=== PATIENT | male | born 1955 | race Caucasian/White ===

== ENCOUNTER → 2018-11-05 09:51 | Outpatient (CLI) | payer BC, SELFPAY ==
--- NOTE | 2018-11-05 09:56 | VDLE_ITS ---
Reason For Study: ACUTE DVT RIGHT LEFT CFV is compressible, spontaneous, phasic, GSV is normal. competent and demonstrates normal CFV is compressible, spontaneous, phasic, augmentation. competent, and demonstrates normal Procedure augmentation. Exam performed in department. FV is compressible, spontaneous, phasic, A preliminary report was called and/or faxed competent and demonstrates normal to DR [place]. augmentation. POP V is compressible, spontaneous, phasic, competent and demonstrates normal augmentation. T/P Trunk is compressible. PTV is compressible. LT PerV is compressible. Interpretation Summary Deep veins of the left lower extremity are patent and compressible segmentally. There is no evidence of left lower extremity deep vein thrombosis. Valvular competence appears intact within the proximal deep venous system on the left . The left greater saphenous vein appears patent and compressible segmentally. Ordering Physician: Twila Canada Referring Physician: Twila Canada Performed By: Jennifer Hanson, RAFI, RVT
--- OUTSIDE RECORDS SUMMARY | 2019-02-06 22:15 | XMS RPT_ITS | Continuity of Care Document ---
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) Status: Active BMI 27.0-27.9,adult (Z68.27, V85.23) Status: Active Encounter for screening for malignant neoplasm of colon (Renamed from Special screening for malignant neoplasms, colon) (Z12.11, V76.51) Comments: pt refused scope Status: Active Encounter for screening for malignant neoplasm of prostate (Renamed from Screening for prostate cancer) (Z12.5, V76.44) Status: Active Erectile Dysfunction (N52.9, 607.84) Status: Active High triglycerides (E78.1, 272.1) Status: Active History of rotator cuff surgery (Z98.890, V45.89) Status: Active HTN (hypertension), benign (I10, 401.1) Comments: pt lost 40# and currently bp good and no meds Status: Active Need for prophylactic vaccination and inoculation against influenza (Renamed from Need for immunization against influenza) (Z23, V04.81) Status: Active Need for prophylactic vaccination and inoculation against influenza (Renamed from Need for immunization against influenza) (Z23, V04.81) Status: Active Nonsmoker (Z78.9, V49.89) Status: Active Osteoarthritis (M19.90, 715.90) Comments: talked about alternating forms of exercise with non wt bearing and running to tolerat better andstay active Status: Active Pre-operative examination (Z01.818, V72.84) Comments: ekg done 3 weeks ago Status: Active Shoulder pain (M25.519, 719.41) Status: Active Skin Cancer Status: Active Torn rotator cuff (M75.100, 840.4) Status: Active Unspecified Diagnosis Status: Active Medications Name Dates Details AmLODIPine Besylate 2.5 MG Oral Tablet Active 1 qd (2.5 MG) BusPIRone HCl 10 MG Oral Tablet Active 1 bid (10 MG) CloNIDine HCl 0.1 MG Oral Tablet Active 1 qd (0.1 MG) Famotidine 20 MG Oral Tablet Active 1 bid (20 MG) Melatonin 5 MG Oral Tablet Active 1 qd (5 MG) Memantine HCl 5 MG Oral Tablet Active 1 bid (5 MG) Multivitamin Adult Oral Tablet Active 1 qd Propranolol HCl 10 MG Oral Tablet Active 1 qd (10 MG) Tylenol 325 MG Oral Tablet Active 1 q6hrs (325 MG) Cialis 10 MG Oral Tablet 1 (one) Tablet one hr prior to sexual activity as needed for 0 days Quantity: 12 {Tablet} Refills: 0 Ordered:31-Oct-2018 Johana Underwood LPN Start : 16-Oct-2017 End : 31-Oct-2018 Inactive Comments:Medication taken as needed. CRESTOR, 20MG (Oral Tablet) 1 (one) Tablet qd for 0 days Quantity: 30 {Tablet} Refills: 3 Ordered:30-Sep-2015 Johana Underwood LPN Start : 10-Jun-2015 End : 30-Sep-2015 Inactive Lisinopril-Hydrochlorothiazide 10-12.5 MG Oral Tablet 1 (one) Tablet Tablet qd for 0 days Quantity: 30 {Tablet} Refills: 3 Ordered:16-Oct-2017 Frances Oliver Start : 30-Sep-2015 End : 16-Oct-2017 Inactive Medrol 4 MG Oral Tablet Therapy Pack 1 (one) Tablet TAd for 0 days Quantity: 1 {Package} Refills: 0 Ordered:16-Oct-2017 Frances Oliver Start : 07-Oct-2015 End : 16-Oct-2017 Inactive Comments:with No Known Historical Medications Norvasc 5 MG Oral Tablet 1 (one) Tablet Tablet qd for 0 days Quantity: 30 {Tablet} Refills: 6 Ordered:16-Oct-2017 Frances Oliver Start : 30-Sep-2015 End : 16-Oct-2017 Inactive PREDNISONE, 20MG (Oral Tablet) 1 (one) Tablet bid for 2days then qd for 4days then 1/2 tab qd for 4 days wiht food for 10 days Quantity: 6 {QS} Refills: 0 Ordered:07-Oct-2015 Hawa Isidro CNP Start : 07-Oct-2015 End : 17-Oct-2015 Inactive Allergies and Adverse Reactions Name Dates Details No Known Allergies (Allergy) Onset: 17-Feb-2014 Status: Active No Known Drug Allergies (Allergy) Onset: 16-Oct-2017 Status: Active Past Medical History Name Dates Details Indigestion (K30, 536.8) Status: Inactive as of 16-Oct-2017 Procedures Procedure Dates Details Annual Eye Exam Completed Comments: 2012 Cholecystectomy Completed Comments: 03/03 Colonoscopy, Screening Completed Comments: never Flu Vaccine Completed Comments: 2011 PSA Completed Comments: 2011 torn roater cuff and bicep Completed Comments: Left -- 2.10.15Yaquelin Bolanos Case Date Value Details 18-Feb-2014 Gallbladder Result: Comments: See Note; NOTES: [facility] Imaging Services [address] [place] [address] Ultrasound Report MR#: [id number] Acct: [id number] Name: JANET CARLSON Rep #: [id number] : 1955 M 58 From: Yariel Spencer MD PCP: Twila Mckeon DO Status: REG CLI Study: Gallbladder Date of Exam: 02/18/14 Exam# [id number] Ordering Dr: Twila Mckeon DO STUDY: ABDO ANGELITO ULTRASOUND - RIGHT UPPER QUADRANT REASON FOR VISIT: Male, 58 years old. Abdominal pain. TECHNIQUE: Ultrasound evaluation of the right upper quadrant was performed with real-time and static gr ay-scale imaging. TECHNICAL QUALITY: Adequate. COMPARISON: None. FINDINGS: Liver: The liver is mildly enlarged and measures 18.4 cm. There is increased echo genicity consistent with fatty infiltration. There is a 2 cm x 1 cm x 0.9 cm focal area of fatty sparing adjacent to the gallbladder. The bile ducts are within normal limits. There is hepatic color fl ow. The direction of portal flow is hepatopetal. There is no demonstrated mass lesion. Gallbladder: Normal distended gallbladder. The gallbladder wall measures 2.2 mm. There is a negative sonograph ic Vasquez's sign. There is no pericholecystic fluid. There are no gallstones. Common Bile Duct (C.B.D.): The common bile duct measures 4.4 mm. Pancreas: There is nonvisualization of the pancreas. Right Kidney: Normal size of the right kidney. The right kidney measures 11.0 cm. Normal renal cortex. The right cortex measures 1.1 cm. There is no demonstrated renal mass or cyst. There is no right hydronephrosis. IMPRESSION: Mild hepatomegaly and fatty infiltration of the liver with focal fatty sparing in the region of the gallbladder. Electronically Si gned: Yariel Spencer M.D. at 9:21 EDT , Service support [phone], CC: Twila Mckeon DO Electrical Assistant: Signed Family History Unknown Family Member Name Dates Details Heart Disease Comments: Mother. Status: Active Hypertension Comments: Mother. Brother. Status: Active Social History Name Dates Details Caffeine Use Comments: qd Status: Active Exercise History: Exercises regularly. Comments: 5x q week Status: Active Living Situation: Lives alone. Status: Active No Drug Use Status: Active Non Drinker/No Alcohol Use Status: Active Pets/Animals: Dog. Status: Active Tobacco use: Former smoker. Status: Active Smoking Status Name Dates Details Former smoker Vital Signs Date Test Result Details [id number] Pulse 69 /min Comments: Pattern: Regular Respiration Rate 18 /min Comments: Pattern: Unlabored O2 SAT 97 % Comments: Room air BP Systolic 128 mm[Hg] Comments: Patient Position: Sitting; Cuff Location: Left Arm; Cuff Size: Large BP Diastolic 70 mm[Hg] Comments: Patient Position: Sitting; Cuff Location: Left Arm; Cuff Size: Large Weight 184 lb Height 72 in Body Mass Index Calculated 24.95 kg/m2 Body Surface Area Calculated 2.06 m2 :54 Pulse 70 /min Comments: Pattern: Regular Respiration Rate 16 /min Comments: Pattern: Unlabored O2 SAT 98 % Comments: Room air BP Systolic 122 mm[Hg] Comments: Patient Position: Sitting; Cuff Location: Left Arm; Cuff Size: Standard BP Diastolic 80 mm[Hg] Comments: Patient Position: Sitting; Cuff Location: Left Arm; Cuff Size: Standard Weight 205.5 lb Height 72 in Body Mass Index Calculated 27.87 kg/m2 Body Surface Area Calculated 2.16 m2 :48 Pulse 80 /min Comments: Pattern: Regular Respiration Rate 18 /min Comments: Pattern: Unlabored O2 SAT 98 % Comments: Room air BP Systolic 124 mm[Hg] Comments: Patient Position: Sitting; Cuff Location: Left Arm; Cuff Size: Large BP Diastolic 82 mm[Hg] Comments: Patient Position: Sitting; Cuff Location: Left Arm; Cuff Size: Large Weight 233.5 lb Height 72 in Body Mass Index Calculated 31.67 kg/m2 Body Surface Area Calculated 2.28 m2 :11 Pulse 62 /min Comments: Pattern: Regular Respiration Rate 18 /min Comments: Pattern: Unlabored O2 SAT 98 % Comments: Room air BP Systolic 122 mm[Hg] Comments: Patient Position: Sitting; Cuff Location: Left Arm; Cuff Size: Large BP Diastolic 80 mm[Hg] Comments: Patient Position: Sitting; Cuff Location: Left Arm; Cuff Size: Large Weight 218.375 lb Height 72 in Body Mass Index Calculated 29.62 kg/m2 Body Surface Area Calculated 2.21 m2 :51 Temperature 97.9 f Comments: Method: Temporal Pulse 76 /min Comments: Pattern: Regular Respiration Rate 16 /min Comments: Pattern: Unlabored O2 SAT 96 % Comments: Room air BP Systolic 142 mm[Hg] Comments: Patient Position: Sitting; Cuff Location: Left Arm; Cuff Size: Standard BP Diastolic 88 mm[Hg] Comments: Patient Position: Sitting; Cuff Location: Left Arm; Cuff Size: Standard Weight 225.25 lb Height 72 in Body Mass Index Calculated 30.55 kg/m2 Body Surface Area Calculated 2.24 m2 :33 Pulse 88 /min Comments: Pattern: Regular Respiration Rate 18 /min Comments: Pattern: Unlabored O2 SAT 93 % Comments: Room air BP Systolic 146 mm[Hg] Comments: Patient Position: Sitting; Cuff Location: Left Arm; Cuff Size: Large BP Diastolic 98 mm[Hg] Comments: Patient Position: Sitting; Cuff Location: Left Arm; Cuff Size: Large Weight 238.25 lb Height 72 in Body Mass Index Calculated 32.31 kg/m2 Body Surface Area Calculated 2.3 m2 :14 Temperature 97.7 f Comments: Method: Oral Pulse 81 /min Comments: Pattern: Regular Respiration Rate 18 /min Comments: Pattern: Unlabored O2 SAT 96 % Comments: Room air BP Systolic 116 mm[Hg] Comments: Patient Position: Sitting; Cuff Location: Left Arm; Cuff Size: Standard BP Diastolic 78 mm[Hg] Comments: Patient Position: Sitting; Cuff Location: Left Arm; Cuff Size: Standard Weight 219.3125 lb Height 72 in Body Mass Index Calculated 29.74 kg/m2 Body Surface Area Calculated 2.22 m2 :57 Temperature 97.6 f Comments: Method: Oral Pulse 77 /min Comments: Pattern: Regular Respiration Rate 20 /min Comments: Pattern: Unlabored O2 SAT 96 % Comments: Room air BP Systolic 152 mm[Hg] Comments: Patient Position: Sitting; Cuff Location: Left Arm; Cuff Size: Large BP Diastolic 108 mm[Hg] Comments: Patient Position: Sitting; Cuff Location: Left Arm; Cuff Size: Large Weight 226.3125 lb Height 72 in Body Mass Index Calculated 30.69 kg/m2 Body Surface Area Calculated 2.25 m2 Results Date Description Value Details :46 Microscopic Examination Comments: PATIENT WAS FASTINGPERFORMED BY: CB [facility] [id number] [facility] [id number] BY: BN [facility] [address] [id number] Bacteria None seen (Normal) Mucus Threads Present (Normal) Epithelial Cells (non renal) None seen {/hpf} (Normal) Range: 0 - 10 RBC 0-2 {/hpf} (Normal) Range: 0 - 2 WBC 0-5 {/hpf} (Normal) Range: 0 - 5 :46 TESTOSTERONE FREE (13515) Comments: PATIENT WAS FASTINGPERFORMED BY: [place] [id number] [facility] [id number] BY: [address] [id number] Free Testosterone(Direct) 10.5 pg/mL (Normal) Range: 6.6-18.1 :46 PSA (PROSTATE SPECIFIC Comments: PATIENT WAS FASTINGPERFORMED BY: [place] [address] [id number] BY: [place] [id number] ANTIGEN) (V76.44) Prostate Specific Ag, 1.6 ng/mL (Normal) Range: 0.0-4.0 Serum Comments: KnovelIA methodology. .According to the [place] [employer], Serum PSA shoulddecrease and remain at undetectable levels after radicalprostatectomy. The AUA defines biochemical recurrence as an initialPSA value 0.2 ng/mL or greater followed by a subsequent confirmatoryPSA value 0.2 ng/mL or greater.Values obtained with d ifferent assay methods or kits cannot be usedinterchangeably. Results cannot be interpreted as absolute evidenceof the presence or absence of malignant disease. :46 TSH (70156) Comments: PATIENT WAS FASTINGPERFORMED BY: [place] [id number] [facility] [id number] BY: [address] [id number] TSH 2.520 {uIU/mL} (Normal) Range: 0.450-4.500 59-Jra-158906:46 URINALYSIS, W/ MICRO Comments: PATIENT WAS FASTINGPERFORMED BY: [place] [id number] BY: [address] [id number] (43040) Microscopic Examination See below: (Normal) Comments: Microscopic was indicated and was performed. Microscopic Examination MICRON (Normal) Comments: Microscopic follows if indicated. Nitrite, Urine Negative (Normal) Urobilinogen,Semi-Qn 0.2 mg/dL (Normal) Range: 0.2-1.0 Bilirubin Negative (Normal) Occult Blood Negative (Normal) Ketones Negative (Normal) Glucose Negative (Normal) Protein Negative (Normal) WBC Esterase Negative (Normal) Appearance Clear (Normal) Urine-Color Yellow (Normal) pH 5.5 (Normal) Range: 5.0-7.5 Specific [place] 1.019 (Normal) Range: 1.005-1.030 :46 MICROALBUMIN: CREATININE Comments: PATIENT WAS FASTINGPERFORMED BY: IROCKE[address] [id number] BY: [address] [id number] RATIO (74402) AND (42987) Microalb/Creat Ratio 7.2 {mg/g_creat} (Normal) Range: 0.0-30.0 Microalbumin, Urine 8.8 ug/mL (Normal) Creatinine, Urine 122.7 mg/dL (Normal) :46 METABOLIC PANEL, Comments: PATIENT WAS FASTINGPERFORMED BY: IROCKE[address] [id number] BY: [place] [id number] COMPREHENSIVE (72267) ALT (SGPT) 22 [iU]/L (Normal) Range: 0-44 AST (SGOT) 16 [iU]/L (Normal) Range: 0-40 Alkaline Phosphatase, S 73 [iU]/L (Normal) Range: 39-117 Bilirubin, Total 0.3 mg/dL (Normal) Range: 0.0-1.2 A/G Ratio 1.6 (Normal) Range: 1.2-2.2 Globulin, Total 2.6 g/dL (Normal) Range: 1.5-4.5 Albumin, Serum 4.1 g/dL (Normal) Range: 3.6-4.8 Protein, Total, Serum 6.7 g/dL (Normal) Range: 6.0-8.5 Calcium, Serum 9.3 mg/dL (Normal) Range: 8.6-10.2 Carbon Dioxide, Total 23 mmol/L (Normal) Range: 18-29 Chloride, Serum 105 mmol/L (Normal) Range: 96-106 Potassium, Serum 4.7 mmol/L (Normal) Range: 3.5-5.2 Sodium, Serum 144 mmol/L (Normal) Range: 134-144 BUN/Creatinine Ratio 14 (Normal) Range: 10-24 eGFR If Africn Am 92 mL/min/1.73 (Normal) eGFR If NonAfricn Am 80 mL/min/1.73 (Normal) Creatinine, Serum 1.01 mg/dL (Normal) Range: 0.76-1.27 BUN 14 mg/dL (Normal) Range: 8-27 Glucose, Serum 80 mg/dL (Normal) Range: 65-99 80-Qxx-531426:46 LIPID PANEL (52880) Comments: PATIENT WAS FASTINGPERFORMED BY: [email or web address] [facility] [id number] BY: Inveni [address] [id number] LDL/HDL Ratio 3.0 {ratio_units} (Normal) Range: 0.0-3.6 Comments: LDL/HDL Ratio Men Women 1/2 Avg.Risk 1.0 1.5 Av g.Risk 3.6 3.2 2X Avg.Risk 6.2 5.0 3X Avg.Risk 8.0 6.1 LDL Cholesterol Calc 106 mg/dL (Abnormal) Range: 0-99 VLDL Cholesterol Tony 36 mg/dL (Normal) Range: 5-40 HDL Cholesterol 35 mg/dL (Abnormal) Triglycerides 180 mg/dL (Abnormal) Range: 0-149 Cholesterol, Total 177 mg/dL (Normal) Range: 100-199 24-Nzw-772754:46 CBC W/AUTO DIFF WBC Comments: PATIENT WAS FASTINGPERFORMED BY: [email or web address] [facility] [id number] BY: [place] [id number] (49891) Immature Grans (Abs) 0.0 {x10E3/uL} (Normal) Range: 0.0-0.1 Immature Granulocytes 0 % (Normal) Baso (Absolute) 0.1 {x10E3/uL} (Normal) Range: 0.0-0.2 Eos (Absolute) 0.4 {x10E3/uL} (Normal) Range: 0.0-0.4 Monocytes(Absolute) 0.5 {x10E3/uL} (Normal) Range: 0.1-0.9 Lymphs (Absolute) 2.3 {x10E3/uL} (Normal) Range: 0.7-3.1 Neutrophils (Absolute) 1.9 {x10E3/uL} (Normal) Range: 1.4-7.0 Basos 2 % (Normal) Eos 7 % (Normal) Monocytes 9 % (Normal) Lymphs 45 % (Normal) Neutrophils 37 % (Normal) Platelets 303 {x10E3/uL} (Normal) Range: 150-379 RDW 13.4 % (Normal) Range: 12.3-15.4 MCHC 33.8 g/dL (Normal) Range: 31.5-35.7 MCH 32.8 pg (Normal) Range: 26.6-33.0 MCV 97 fL (Normal) Range: 79-97 Hematocrit 45.0 % (Normal) Range: 37.5-51.0 Hemoglobin 15.2 g/dL (Normal) Range: 12.6-17.7 Comments: Effective October 23, 2017 the reference interval for Hemoglobin MALES only will be changing to: Males 13-15 years: 12.6 - 17.7 Males >15 years: 13.0 - 17.7 RBC 4.64 {x10E6/uL} (Normal) Range: 4.14-5.80 WBC 5.1 {x10E3/uL} (Normal) Range: 3.4-10.8 :01 TESTOSTERONE TOTAL (12291) Comments: PATIENT WAS FASTINGPERFORMED BY: MARIA EUGENIA Mayomi70 [facility] [id number] Comment: TESTM (Normal) Comments: Adult male reference interval is based on a population of lean malesup to 40 years old. Testosterone, Serum 398 ng/dL (Normal) Range: 348-1197 :01 CBC WITH MANUAL DIFF Comments: PATIENT WAS FASTINGPERFORMED BY: MARIA EUGENIA Karaz [facility] [id number] Information: [id number] (56542) Immature Grans (Abs) 0.0 {x10E3/uL} (Normal) Range: 0.0-0.1 Immature Granulocytes 0 % (Normal) Baso (Absolute) 0.1 {x10E3/uL} (Normal) Range: 0.0-0.2 Eos (Absolute) 0.1 {x10E3/uL} (Normal) Range: 0.0-0.4 Monocytes(Absolute) 0.4 {x10E3/uL} (Normal) Range: 0.1-0.9 Lymphs (Absolute) 2.3 {x10E3/uL} (Normal) Range: 0.7-3.1 Neutrophils (Absolute) 1.2 {x10E3/uL} (Abnormal) Range: 1.4-7.0 Basos 2 % (Normal) Eos 3 % (Normal) Monocytes 10 % (Normal) Lymphs 56 % (Normal) Neutrophils 29 % (Normal) Platelets 208 {x10E3/uL} (Normal) Range: 150-379 RDW 13.1 % (Normal) Range: 12.3-15.4 MCHC 33.8 g/dL (Normal) Range: 31.5-35.7 MCH 31.7 pg (Normal) Range: 26.6-33.0 MCV 94 fL (Normal) Range: 79-97 Hematocrit 45.6 % (Normal) Range: 37.5-51.0 Hemoglobin 15.4 g/dL (Normal) Range: 12.6-17.7 RBC 4.86 {x10E6/uL} (Normal) Range: 4.14-5.80 WBC 4.2 {x10E3/uL} (Normal) Range: 3.4-10.8 :01 TSH (83213) Comments: PATIENT WAS FASTINGPERFORMED BY: MARIA EUGENIA [facility] [id number] TSH 2.030 {uIU/mL} (Normal) Range: 0.450-4.500 :01 Lipid Panel (73557) Comments: PATIENT WAS FASTINGPERFORMED BY: MARIA EUGENIA [facility] [id number] LDL/HDL Ratio 3.1 {ratio_units} (Normal) Range: 0.0-3.6 Comments: LDL/HDL Ratio Men Women 1/2 Avg.Risk 1.0 1.5 Av g.Risk 3.6 3.2 2X Avg.Risk 6.2 5.0 3X Avg.Risk 8.0 6.1 LDL Cholesterol Calc 98 mg/dL (Normal) Range: 0-99 VLDL Cholesterol Tony 51 mg/dL (Abnormal) Range: 5-40 HDL Cholesterol 32 mg/dL (Abnormal) Comments: According to ATP-III Guidelines, HDL-C >59 mg/dL is considered anegative risk factor for CHD. Triglycerides 257 mg/dL (Abnormal) Range: 0-149 Cholesterol, Total 181 mg/dL (Normal) Range: 100-199 02-Zxs-34706:01 Metabolic Panel, Comprehensive Comments: PATIENT WAS FASTINGPERFORMED BY: [facility][id number] [facility] [id number] ([id number]) ALT (SGPT) 28 [iU]/L (Normal) Range: 0-44 AST (SGOT) 25 [iU]/L (Normal) Range: 0-40 Alkaline Phosphatase, S 57 [iU]/L (Normal) Range: 39-117 Bilirubin, Total 0.5 mg/dL (Normal) Range: 0.0-1.2 A/G Ratio 2.1 (Normal) Range: 1.1-2.5 Globulin, Total 2.4 g/dL (Normal) Range: 1.5-4.5 Albumin, Serum 5.0 g/dL (Normal) Range: 3.5-5.5 Protein, Total, Serum 7.4 g/dL (Normal) Range: 6.0-8.5 Calcium, Serum 9.8 mg/dL (Normal) Range: 8.7-10.2 Carbon Dioxide, Total 22 mmol/L (Normal) Range: 18-29 Chloride, Serum 98 mmol/L (Normal) Range: 97-108 Potassium, Serum 4.4 mmol/L (Normal) Range: 3.5-5.2 Sodium, Serum 141 mmol/L (Normal) Range: 134-144 BUN/Creatinine Ratio 14 (Normal) Range: 9-20 eGFR If Africn Am 68 mL/min/1.73 (Normal) eGFR If NonAfricn Am 59 mL/min/1.73 (Abnormal) Creatinine, Serum 1.32 mg/dL (Abnormal) Range: 0.76-1.27 BUN 19 mg/dL (Normal) Range: 6-24 Glucose, Serum 84 mg/dL (Normal) Range: 65-99 :55 Sed Rate Erythrocyte (68785) Comments: PATIENT NOT FASTINGPERFORMED BY: Inveni Egsknr0443 [facility] [id number] Sedimentation Rate-Westergren 6 mm/h (Normal) Range: 0-30 16-Uqs-264237:55 METABOLIC PANEL, COMPREHENSIVE Comments: PATIENT NOT FASTINGPERFORMED BY: [employer]6370 [facility] [id number] ([id number]) ALT (SGPT) 26 [iU]/L (Normal) Range: 0-44 AST (SGOT) 18 [iU]/L (Normal) Range: 0-40 Alkaline Phosphatase, S 62 [iU]/L (Normal) Range: 39-117 Bilirubin, Total 0.2 mg/dL (Normal) Range: 0.0-1.2 A/G Ratio 1.8 (Normal) Range: 1.1-2.5 Globulin, Total 2.6 g/dL (Normal) Range: 1.5-4.5 Albumin, Serum 4.7 g/dL (Normal) Range: 3.5-5.5 Protein, Total, Serum 7.3 g/dL (Normal) Range: 6.0-8.5 Calcium, Serum 9.6 mg/dL (Normal) Range: 8.7-10.2 Carbon Dioxide, Total 21 mmol/L (Normal) Range: 19-28 Chloride, Serum 104 mmol/L (Normal) Range: 97-108 Potassium, Serum 4.1 mmol/L (Normal) Range: 3.5-5.2 Sodium, Serum 142 mmol/L (Normal) Range: 134-144 BUN/Creatinine Ratio 17 (Normal) Range: 9-20 eGFR If Africn Am 78 mL/min/1.73 (Normal) eGFR If NonAfricn Am 67 mL/min/1.73 (Normal) Creatinine, Serum 1.19 mg/dL (Normal) Range: 0.76-1.27 BUN 20 mg/dL (Normal) Range: 6-24 Glucose, Serum 89 mg/dL (Normal) Range: 65-99 73-Lly-133512:55 CBC WITH MANUAL DIFF Comments: PATIENT NOT FASTINGPERFORMED BY: MARIA EUGENIA [facility] Haeiaw7944 [facility] [id number] Information: [id number] (18763) Immature Grans (Abs) 0.0 {x10E3/uL} (Normal) Range: 0.0-0.1 Immature Granulocytes 0 % (Normal) Range: 0-2 Baso (Absolute) 0.1 {x10E3/uL} (Normal) Range: 0.0-0.2 Eos (Absolute) 0.1 {x10E3/uL} (Normal) Range: 0.0-0.4 Monocytes(Absolute) 0.4 {x10E3/uL} (Normal) Range: 0.1-0.9 Lymphs (Absolute) 2.2 {x10E3/uL} (Normal) Range: 0.7-3.1 Neutrophils (Absolute) 1.7 {x10E3/uL} (Normal) Range: 1.4-7.0 Basos 1 % (Normal) Range: 0-3 Eos 2 % (Normal) Range: 0-5 Monocytes 8 % (Normal) Range: 4-12 Lymphs 51 % (Abnormal) Range: 14-46 Neutrophils 38 % (Abnormal) Range: 40-74 Platelets 257 {x10E3/uL} (Normal) Range: 155-379 RDW 13.2 % (Normal) Range: 12.3-15.4 MCHC 33.3 g/dL (Normal) Range: 31.5-35.7 MCH 31.6 pg (Normal) Range: 26.6-33.0 MCV 95 fL (Normal) Range: 79-97 Hematocrit 42.6 % (Normal) Range: 37.5-51.0 Hemoglobin 14.2 g/dL (Normal) Range: 12.6-17.7 RBC 4.50 {x10E6/uL} (Normal) Range: 4.14-5.80 WBC 4.5 {x10E3/uL} (Normal) Range: 3.4-10.8 Plan of Care Name Dates Details Instructions Encounter for screening for malignant neoplasm of colon (Renamed from Special screening for malignant neoplasms, colon) : *Colon Cancer Screening Indication: Encounter for screening for malignant neoplasm of colon (Renamed from Special screening for malignant neoplasms, colon) HTN (hypertension), benign : HTN/CAD Red Flags Indication: HTN (hypertension), benign Nonsmoker : Eprescribed prescriptions (G8553) Indication: Nonsmoker Acute idiopathic gout of left foot : Solu Medrol Injection/ Education Indication: Acute idiopathic gout of left foot High triglycerides : Follow up in 3 months Indication: High triglycerides HTN (hypertension), benign : High Blood Pressure (Essential Hypertension) *: blood Indication: HTN (hypertension), benign HTN (hypertension), benign : Eprescribed prescriptions (G8553) Indication: HTN (hypertension), benign HTN (hypertension), benign : Follow up in 4 months Indication: HTN (hypertension), benign HTN (hypertension), benign : Diet, Exercise, and Wt loss Indication: HTN (hypertension), benign HTN (hypertension), benign : HTN/CAD Red Flags Indication: HTN (hypertension), benign Erectile Dysfunction : erection medication education Indication: Erectile Dysfunction HTN (hypertension), benign : Follow up in 2-3 weeks bp ck Indication: HTN (hypertension), benign HTN (hypertension), benign : Eprescribed prescriptions (G8553) Indication: HTN (hypertension), benign HTN (hypertension), benign : Eprescribed prescriptions (G8553) Indication: HTN (hypertension), benign HTN (hypertension), benign : Follow up in 4 months Indication: HTN (hypertension), benign HTN (hypertension), benign : Diet, Exercise, and Wt loss Indication: HTN (hypertension), benign HTN (hypertension), benign : HTN/CAD Red Flags Indication: HTN (hypertension), benign HTN (hypertension), benign : Continue Current Prescription(s) Indication: HTN (hypertension), benign HTN (hypertension), benign : HTN/CAD Red Flags Indication: HTN (hypertension), benign Abnormal biliary HIDA scan : Reviewed Diagnostic Tests Indication: Abnormal biliary HIDA scan HTN (hypertension), benign : Follow up in 3 weeks Indication: HTN (hypertension), benign HTN (hypertension), benign : HTN/CAD Red Flags Indication: HTN (hypertension), benign Planned Observations TSH (70447)Indication: High triglycerides On: 74-Diz-447530:34 Request URINALYSIS, W/ MICRO (77203)Indication: HTN (hypertension), benign On: :34 Request MICROALBUMIN: CREATININE RATIO (91705) AND (64649)Indication: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
--- OUTSIDE RECORDS SUMMARY | 2019-02-06 22:15 | XMS RPT_ITS | Continuity of Care Document ---
:1955 Author Organization [facility] Address [address] [place] [address] Phone Care Team Providers Name Role Phone Twila Mckeon DO Unavailable Frances Oliver Unavailable Unavailable Unavailable Unavailable Problems Name Dates [...] Diagnosis Status: Active Medications Name Dates Details Cialis 10 MG Oral Tablet 1 (one) Tablet one hr prior to sexual activity as needed for 0 days Quantity: 12 {Tablet} Refills: 0 Ordered:16-Oct-2017 Vicky Mckeon DO, DO, Kathleen Start : 16-Oct-2017 Active Comments:Medication taken as needed. CRESTOR, 20MG (Oral [...] cuff and bicep Completed Comments: Left -- 10.15Yaquelin Bolanos Case Date Value Details 18-Feb-2014 Gallbladder Result: Comments: See Note; NOTES: [facility] Imaging Services [address] [place] [address] Ultrasound Report MR#: [id number] Acct: [id number] Name: AJNET CARLSON Rep #: [id number] : 1955 M 58 From: Yariel Spencer MD PCP: Twila Mckeon DO Status: REG CLI Study: Gallbladder Date of Exam: 02/18/14 Exam# [id number] Ordering Dr: Twila Mckeon DO STUDY: ABDO [...] M.D. 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 Family History Unknown Family Member Name [...] smoker Vital Signs Date Test Result Details :54 Pulse 70 /min Comments: Pattern: Regular [...] 2.25 m2 Results Date Description Value Details 53-Pla-984590:46 Microscopic Examination Comments: PATIENT WAS FASTINGPERFORMED BY: SynapticMash [facility] [id number] BY: [employer] [id number] Bacteria None seen (Normal) Mucus Threads Present (Normal) Epithelial Cells (non renal) None seen {/hpf} (Normal) Range: 0 - 10 RBC 0-2 {/hpf} (Normal) Range: 0 - 2 WBC 0-5 {/hpf} (Normal) Range: 0 - 5 :46 TESTOSTERONE FREE (57047) Comments: PATIENT WAS FASTINGPERFORMED BY: [employer]aptic[employer]ash [facility] [id number] BY: [employer] [id number] Free Testosterone(Direct) 10.5 pg/mL (Normal) Range: 6.6-18.1 00-Hoc-677480:46 PSA (PROSTATE SPECIFIC Comments: PATIENT WAS FASTINGPERFORMED BY: [employer] [facility] [id number] BY: [employer] [id number] ANTIGEN) (V76.44) Prostate Specific Ag, 1.6 ng/mL (Normal) Range: 0.0-4.0 Serum Comments: Gerard ECLIA methodology. .According to the [place] [employer], Serum PSA shoulddecrease and remain at undetectable levels after radicalprostatectomy. The AUA defines biochemical recurrence as an initialPSA value 0.2 ng/mL or greater followed by a subsequent confirmatoryPSA value 0.2 ng/mL or greater.Values obtained with d ifferent assay methods or kits cannot be usedinterchangeably. Results cannot be interpreted as absolute evidenceof the presence or absence of malignant disease. :46 TSH (82271) Comments: PATIENT WAS FASTINGPERFORMED BY: [employer] [facility] [id number] BY: [employer] [id number] TSH 2.520 {uIU/mL} (Normal) Range: 0.450-4.500 :46 URINALYSIS, W/ MICRO Comments: PATIENT WAS FASTINGPERFORMED BY: [employer] [facility] [id number] BY: Steelwedge SoftwareJohn [place]ille [id number] (26014) Microscopic Examination See below: (Normal) Comments: Microscopic was indicated and was performed. Microscopic Examination MICRON (Normal) Comments: Microscopic follows if indicated. Nitrite, Urine Negative (Normal) Urobilinogen,Semi-Qn 0.2 mg/dL (Normal) Range: 0.2-1.0 Bilirubin Negative (Normal) Occult Blood Negative (Normal) Ketones Negative (Normal) Glucose Negative (Normal) Protein Negative (Normal) WBC Esterase Negative (Normal) Appearance Clear (Normal) Urine-Color Yellow (Normal) pH 5.5 (Normal) Range: 5.0-7.5 Specific [place] 1.019 (Normal) Range: 1.005-1.030 :46 MICROALBUMIN: CREATININE Comments: PATIENT WAS FASTINGPERFORMED BY: [employer] ClusterSeven [facility] [id number] BY: [place] [id number] RATIO (72445) AND (19014) Microalb/Creat Ratio 7.2 {mg/g_creat} (Normal) Range: 0.0-30.0 Microalbumin, Urine 8.8 ug/mL (Normal) Creatinine, Urine 122.7 mg/dL (Normal) 53-Avq-647727:46 METABOLIC PANEL, Comments: PATIENT WAS FASTINGPERFORMED BY: [employer]im70 [facility] [id number] BY: [facility] [id number] COMPREHENSIVE (47681) ALT (SGPT) 22 [iU]/L (Normal) Range: 0-44 [...] Glucose, Serum 80 mg/dL (Normal) Range: 65-99 12-Vbf-638604:46 LIPID PANEL (98037) Comments: PATIENT WAS FASTINGPERFORMED BY: LabOmPrompt Stqukm7282 [facility] [id number] BY: LabgoTaja[employer] [id number] LDL/HDL Ratio 3.0 {ratio_units} (Normal) Range: 0.0-3.6 Comments: LDL/HDL Ratio Men Women 1/2 Avg.Risk 1.0 1.5 Av g.Risk 3.6 3.2 2X Avg.Risk 6.2 5.0 3X Avg.Risk 8.0 6.1 LDL Cholesterol Calc 106 mg/dL (Abnormal) Range: 0-99 VLDL Cholesterol Tony 36 mg/dL (Normal) Range: 5-40 HDL Cholesterol 35 mg/dL (Abnormal) Triglycerides 180 mg/dL (Abnormal) Range: 0-149 Cholesterol, Total 177 mg/dL (Normal) Range: 100-199 54-Wwe-658002:46 CBC W/AUTO DIFF WBC Comments: PATIENT WAS FASTINGPERFORMED BY: CB [facility] Nioerj0391 [facility] [id number] BY: [facility] [address] [id number] (84491) Immature Grans (Abs) 0.0 {x10E3/uL} (Normal) Range: [...] {x10E3/uL} (Normal) Range: 3.4-10.8 :01 TESTOSTERONE TOTAL (10758) Comments: PATIENT WAS FASTINGPERFORMED BY: Mlog Aymbbv7797 [facility] [id number] Comment: TESTM (Normal) Comments: Adult male reference interval is based on a population of lean malesup to 40 years old. Testosterone, Serum 398 ng/dL (Normal) Range: 348-1197 :01 CBC WITH MANUAL DIFF Comments: PATIENT WAS FASTINGPERFORMED BY: EZ-Ticketlin6370 [facility] [id number] Information: [id number] (22939) Immature Grans (Abs) 0.0 {x10E3/uL} (Normal) Range: [...] 4.2 {x10E3/uL} (Normal) Range: 3.4-10.8 :01 TSH (35066) Comments: PATIENT WAS FASTINGPERFORMED BY: [employer] [facility] [id number] TSH 2.030 {uIU/mL} (Normal) Range: 0.450-4.500 :01 Lipid Panel (87695) Comments: PATIENT WAS FASTINGPERFORMED BY: [employer]apticM[employer] [facility] [id number] LDL/HDL Ratio 3.1 {ratio_units} (Normal) Range: 0.0-3.6 [...] Cholesterol, Total 181 mg/dL (Normal) Range: 100-199 :01 Metabolic Panel, Comprehensive Comments: PATIENT WAS FASTINGPERFORMED BY: 10X TechnologiesHudson County Meadowview HospitalQomkrl8940 [facility] [id number] (25508) ALT (SGPT) 28 [iU]/L (Normal) Range: 0-44 [...] Glucose, Serum 84 mg/dL (Normal) Range: 65-99 18-Pjl-684876:55 Sed Rate Erythrocyte (04607) Comments: PATIENT NOT FASTINGPERFORMED BY: LabCoHudson County Meadowview HospitalFsrwdj3625 [facility] [id number] Sedimentation Rate-Westergren 6 mm/h (Normal) Range: 0-30 31-Yju-856429:55 METABOLIC PANEL, COMPREHENSIVE Comments: PATIENT NOT FASTINGPERFORMED BY: Steelwedge SoftwareCoHudson County Meadowview HospitalBuvinu5802 [facility] [id number] (08159) ALT (SGPT) 26 [iU]/L (Normal) Range: 0-44 [...] Glucose, Serum 89 mg/dL (Normal) Range: 65-99 44-Axt-047659:55 CBC WITH MANUAL DIFF Comments: PATIENT NOT FASTINGPERFORMED BY: LabCoHudson County Meadowview HospitalRfporr3505 [facility] [id number] Information: [id number] (72139) Immature Grans (Abs) 0.0 {x10E3/uL} (Normal) Range: [...] Indication: HTN (hypertension), benign Planned Observations TSH (23629)Indication: High triglycerides On: :34 Request URINALYSIS, W/ MICRO (50607)Indication: HTN (hypertension), benign On: :34 Request MICROALBUMIN: CREATININE RATIO (45825) AND (69976)Indication: HTN (hypertension), benign On: :34 Request METABOLIC PANEL, COMPREHENSIVE (61129)Indication: HTN (hypertension), benign On: :34 Request CBC W/AUTO DIFF WBC (29857)Indication: HTN (hypertension), benign On: :34 Request LIPID PANEL (61704)Indication: High triglycerides On: :34 Request TSH (63982)Indication: HTN (hypertension), benign On: : Request URINALYSIS, W/ MICRO (73285)Indication: HTN (hypertension), benign On: :01 Request MICROALBUMIN: CREATININE RATIO (28264) AND (09873)Indication: HTN (hypertension), benign On: 9-Okc-122456: Request METABOLIC PANEL, COMPREHENSIVE (20600)Indication: HTN (hypertension), benign On: : Request LIPID PANEL (44137)Indication: HTN (hypertension), benign On: : Request CBC with auto diff (49641)Indication: HTN (hypertension), benign On: : Request Planned Encounters Medical; Hospital Follow Up - On: 08-Nov-2018 9:45 [facility] Twila Mckeon DO, DO, Kathleen Planned Procedures ELECTROCARDIOGRAM, COMPLETE (ECG) On: 16-Oct-2017 Intent (42555)By: Twila Mckeon DO Comments: nsr no acute chg Twila BRASWELL Flu Vaccine (Quadrivalent) 62585Vi: On: 16-Oct-2017 Intent Twila Mckeon DO, DO, Kathleen Comments: lot: [id number]: 05/07/18ite/route: L mike, IMamt: 0.5mlVIS and ABN signed when applicableROSEANNE Daniels Flu Vaccine (Quadrivalent) 99229Uc: On: 30-Sep-2015 Intent Twila Mckeon DO, DO, Kathleen Comments: Lot:[id number]:05/19/16Amt:0.5mlRoute:IMSite: L DltdGiven By: RAFY CRONINVIS signed Solu- Medrol Injection, 125mg On: 30-Sep-2015 Intent (J2930)By: Twila Mckeon DO Comments: 2 ml given im lt hip lot [id number] EXP 3/18 CM Twila CRONIN DO EKG (85930)By: Twila Mckeon DO On: 25-Dec-2014 Intent Twila Mckeon DO Comments: nsr no acute chg Nuclear Medicine - HIDA w/CPKBy: Mike On: 18-Feb-2014 Intent Twila BRASWELL DO, Kathleen EKG (01212)By: Twila Mckeon DO On: 17-Feb-2014 Intent Twila Mckeon DO Comments: nsr no acute chg Ultrasound - GallbladderBy: Mike BRASWELL, On: 17-Feb-2014 Intent Twila Mike DO, Twila Planned Medications INJECTION, METHYLPREDNISOLONE SODIUM SUCCINATE, UP [...] Patient Instructions Indication: HTN (hypertension), benign Encounters Office Visit On: 16-Oct-2017 14:53 Encounter Reason: [...] has been compliant with instructions. Current medication us End: 30-Sep-2015 17:08 e: no side effects [...]
--- OUTSIDE RECORDS SUMMARY | 2019-02-06 22:15 | XMS RPT_ITS | Continuity of Care Document ---
:1955 Author Organization [facility] Address [address] [place] [address] Phone Care Team Providers Name Role Phone Twila Mckeon DO Unavailable MEHNAZ Underwood Unavailable Unavailable Frances Oliver Unavailable Unavailable Unavailable Unavailable Problems Name Dates Details Abdominal pain, acute, right upper quadrant (R10.11, 789.01) Status: Active Abnormal biliary HIDA scan (R94.8, 794.9) Status: Active Acute deep vein thrombosis (DVT) of femoral vein of left lower extremity (I82.412, 453.41) Status: Active Acute idiopathic gout of left foot (M10.072, 274.01) Status: Active Acute subdural hematoma (S06.5X9A, 432.1) Status: Active BMI 27.0-27.9,adult (Z68.27, V85.23) Status: Active Closed fracture of base of skull with subarachnoid hemorrhage, initial encounter (S02.109A, 801.20) Status: Active Closed fracture of orbital wall (S02.80XA, 802.8) Status: Active Contraindication to anticoagulation therapy (Z53.09, V64.1) Status: Active Cyst of skin (L72.9, 706.2) Status: Active Encounter for screening for malignant neoplasm of colon (Renamed from Special screening for malignant neoplasms, colon) (Z12.11, T86.51) Comments: pt refused scope Status: Active Encounter for screening for malignant neoplasm of prostate (Renamed from Screening for prostate cancer) (Z12.5, V76.44) Status: Active Erectile Dysfunction (N52.9, 607.84) Status: Active ETD (Eustachian tube dysfunction), bilateral (H69.83, 381.81) Status: Active Fracture of parietal bone (S02.0XXA, 800.00) Status: Active Fracture of temporal bone (S02.19XA, 801.00) Status: Active Hemorrhage, intracranial (I62.9, 432.9) Status: Active High triglycerides (E78.1, 272.1) Status: [...] to tolerat better andstay active Status: Active Otalgia, bilateral (H92.03, 388.70) Comments: Dr Pollock -- said inner ear bruised or possible infection could be causing his sx -- wanted me to rx antibiotic if i want?-- will do empirically vs waiting 3mo at reassessment of bruise being etiology b c chronic infection could affect hearing too so why wait Status: Active Pre-operative examination (Z01.818, V72.84) Comments: ekg done 3 weeks ago Status: Active Respiratory failure after trauma (J96.90, 518.81) Status: Active Shoulder pain (M25.519, 719.41) Status: Active Skin Cancer Status: Active Torn rotator cuff (M75.100, 840.4) Status: Active Traumatic abnormalities (T14.90XA, 908.9) Status: Active Traumatic pneumothorax (S27.0XXA, 860.0) Status: Active Unspecified Diagnosis Status: Active Medications Name Dates Details AmLODIPine Besylate 2.5 MG Oral Tablet 1 Tablet qd for 0 days Quantity: 30 {Tablet} Refills: 3 Ordered:31-Oct-2018 Johana Underwood LPN Start : 31-Oct-2018 Active Amoxicillin-Pot Clavulanate 875-125 MG Oral Tablet 1 (one) Tablet bid for 0 days Quantity: 20 {Tablet} Refills: 0 Ordered:31-Oct-2018 Mike BRASWELL Twila Perry DO Start : 31-Oct-2018 Active BusPIRone HCl 10 MG Oral Tablet 1 Tablet bid for 0 days Quantity: 60 {Tablet} Refills: 3 Ordered:31-Oct-2018 Johana Underwood LPN Start : 31-Oct-2018 Active CloNIDine HCl 0.1 MG Oral Tablet 1 Tablet qd for 0 days Quantity: 30 {Tablet} Refills: 3 Ordered:31-Oct-2018 Johana Underwood LPN Start : 31-Oct-2018 Active Famotidine 20 MG Oral Tablet 1 bid (20 MG) Active Melatonin 5 MG Oral Tablet 1 qd (5 MG) Active Memantine HCl 5 MG Oral Tablet 1 Tablet bid for 0 days Quantity: 60 {Tablet} Refills: 3 Ordered:31-Oct-2018 Johana Underwood LPN Start : 31-Oct-2018 Active Multivitamin Adult Oral Tablet 1 qd Active Propranolol HCl 10 MG Oral Tablet 1 Tablet qd for 0 days Quantity: 30 {Tablet} Refills: 3 Ordered:31-Oct-2018 Johana Underwood LPN Start : 31-Oct-2018 Active Tylenol 325 MG Oral Tablet 1 q6hrs (325 MG) Active Cialis 10 MG Oral Tablet 1 (one) [...] 18-Feb-2014 Gallbladder Result: Comments: See Note; NOTES: [facility] Imaging Services [address] [place] [address] Ultrasound Report MR#: [id number] Acct: [id number] Name: JANET GUZMAN Rep #: [id number] : 1955 M 58 From: Yariel Spencer MD PCP: Twila Mckeon DO Status: REG CLI Study: Gallbladder Date of Exam: 02/18/14 Exam# [id number] Ordering Dr: Twila Mckeon DO STUDY: ABDO [...] M.D. 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 Family History Unknown Family Member Name [...] smoker Vital Signs Date Test Result Details :05 Pulse 69 /min Comments: Pattern: Regular Respiration [...] Microscopic Examination Comments: PATIENT WAS FASTINGPERFORMED BY: MARIA EUGENIA [facility] Mkabga9763 [facility] [id number] BY: SUKHJINDER [facility] [address] [id number] Bacteria None seen (Normal) Mucus Threads Present (Normal) Epithelial Cells (non renal) None seen {/hpf} (Normal) Range: 0 - 10 RBC 0-2 {/hpf} (Normal) Range: 0 - 2 WBC 0-5 {/hpf} (Normal) Range: 0 - 5 :46 TESTOSTERONE FREE (26844) Comments: PATIENT WAS FASTINGPERFORMED BY: [employer] Igmxmz6476 [facility] [id number] BY: [address] [id number] Free Testosterone(Direct) 10.5 pg/mL (Normal) Range: 6.6-18.1 :46 PSA (PROSTATE SPECIFIC Comments: PATIENT WAS FASTINGPERFORMED BY: [employer] Muthnv3641 [facility] [id number] BY: [address] [id number] ANTIGEN) (V76.44) Prostate Specific Ag, 1.6 ng/mL (Normal) Range: 0.0-4.0 Serum Comments: [employer] methodology. .According to the [place] [employer], Serum PSA shoulddecrease and remain at undetectable levels after radicalprostatectomy. The AUA defines biochemical recurrence as an initialPSA value 0.2 ng/mL or greater followed by a subsequent confirmatoryPSA value 0.2 ng/mL or greater.Values obtained with d ifferent assay methods or kits cannot be usedinterchangeably. Results cannot be interpreted as absolute evidenceof the presence or absence of malignant disease. :46 TSH (63559) Comments: PATIENT WAS FASTINGPERFORMED BY: [employer] Cndkge3176 [facility] [id number] BY: [employer] [id number] TSH 2.520 {uIU/mL} (Normal) Range: 0.450-4.500 :46 URINALYSIS, W/ MICRO Comments: PATIENT WAS FASTINGPERFORMED BY: [employer] Ikmyef8276 [facility] [id number] BY: [employer] [id number] (78525) Microscopic Examination See below: (Normal) Comments: Microscopic was indicated and was performed. Microscopic Examination MICRON (Normal) Comments: Microscopic follows if indicated. Nitrite, Urine Negative (Normal) Urobilinogen,Semi-Qn 0.2 mg/dL (Normal) Range: 0.2-1.0 Bilirubin Negative (Normal) Occult Blood Negative (Normal) Ketones Negative (Normal) Glucose Negative (Normal) Protein Negative (Normal) WBC Esterase Negative (Normal) Appearance Clear (Normal) Urine-Color Yellow (Normal) pH 5.5 (Normal) Range: 5.0-7.5 Specific [place] 1.019 (Normal) Range: 1.005-1.030 73-Rub-548729:46 MICROALBUMIN: CREATININE Comments: PATIENT WAS FASTINGPERFORMED BY: [employer] [id number] BY: [address] [id number] RATIO (59379) AND (70259) Microalb/Creat Ratio 7.2 {mg/g_creat} (Normal) Range: 0.0-30.0 Microalbumin, Urine 8.8 ug/mL (Normal) Creatinine, Urine 122.7 mg/dL (Normal) 87-Uej-445769:46 METABOLIC PANEL, Comments: PATIENT WAS FASTINGPERFORMED BY: [employer] [id number] BY: [address] [id number] COMPREHENSIVE (34546) ALT (SGPT) 22 [iU]/L (Normal) Range: 0-44 [...] Glucose, Serum 80 mg/dL (Normal) Range: 65-99 17-Uti-912681:46 LIPID PANEL (58229) Comments: PATIENT WAS FASTINGPERFORMED BY: [employer]70 [facility] [id number] BY: [address] [id number] LDL/HDL Ratio 3.0 {ratio_units} (Normal) Range: 0.0-3.6 Comments: LDL/HDL Ratio Men Women 1/2 Avg.Risk 1.0 1.5 Av g.Risk 3.6 3.2 2X Avg.Risk 6.2 5.0 3X Avg.Risk 8.0 6.1 LDL Cholesterol Calc 106 mg/dL (Abnormal) Range: 0-99 VLDL Cholesterol Tony 36 mg/dL (Normal) Range: 5-40 HDL Cholesterol 35 mg/dL (Abnormal) Triglycerides 180 mg/dL (Abnormal) Range: 0-149 Cholesterol, Total 177 mg/dL (Normal) Range: 100-199 81-Xdm-817374:46 CBC W/AUTO DIFF WBC Comments: PATIENT WAS FASTINGPERFORMED BY: [employer]70 [facility] [id number] BY: [address] [id number] (59952) Immature Grans (Abs) 0.0 {x10E3/uL} (Normal) Range: [...] 4.14-5.80 WBC 5.1 {x10E3/uL} (Normal) Range: 3.4-10.8 92-Car-54190:01 TESTOSTERONE TOTAL (27124) Comments: PATIENT WAS FASTINGPERFORMED BY: [facility]CoUniversity HospitalEfhvyl0061 [facility] [id number] Comment: TESTM (Normal) Comments: Adult male reference interval is based on a population of lean malesup to 40 years old. Testosterone, Serum 398 ng/dL (Normal) Range: 348-1197 :01 CBC WITH MANUAL DIFF Comments: PATIENT WAS FASTINGPERFORMED BY: [facility]coTurnoUniversity HospitalElyeno5004 [facility] [id number] Information: [id number] (70879) Immature Grans (Abs) 0.0 {x10E3/uL} (Normal) Range: [...] 4.2 {x10E3/uL} (Normal) Range: 3.4-10.8 :01 TSH (11817) Comments: PATIENT WAS FASTINGPERFORMED BY: [facility]6370 [facility] [id number] TSH 2.030 {uIU/mL} (Normal) Range: 0.450-4.500 :01 Lipid Panel (76674) Comments: PATIENT WAS FASTINGPERFORMED BY: [facility]coTurnoUniversity HospitalJcfixd6849 [facility] [id number] LDL/HDL Ratio 3.1 {ratio_units} (Normal) Range: 0.0-3.6 [...] Panel, Comprehensive Comments: PATIENT WAS FASTINGPERFORMED BY: [employer] Rimxnz7735 [facility] [id number] (90048) ALT (SGPT) 28 [iU]/L (Normal) Range: 0-44 [...] Glucose, Serum 84 mg/dL (Normal) Range: 65-99 19-Qoa-735675:55 Sed Rate Erythrocyte (01643) Comments: PATIENT NOT FASTINGPERFORMED BY: [employer] [facility] Hcafuw4950 [facility] [id number] Sedimentation Rate-Westergren 6 mm/h (Normal) Range: 0-30 :55 METABOLIC PANEL, COMPREHENSIVE Comments: PATIENT NOT FASTINGPERFORMED BY: [employer] [facility] Tzxibb2318 [facility] [id number] (97224) ALT (SGPT) 26 [iU]/L (Normal) Range: 0-44 [...] Glucose, Serum 89 mg/dL (Normal) Range: 65-99 95-Zao-455598:55 CBC WITH MANUAL DIFF Comments: PATIENT NOT FASTINGPERFORMED BY: [facility]6370 [facility] [id number] Information: [id number] (80250) Immature Grans (Abs) 0.0 {x10E3/uL} (Normal) Range: [...] Plan of Care Name Dates Details Instructions Closed fracture of base of skull with subarachnoid hemorrhage, initial encounter : Follow up in 3 months Indication: Closed fracture of base of skull with subarachnoid hemorrhage, initial encounter Closed fracture of base of skull with subarachnoid hemorrhage, initial encounter : Reviewed Lab Indication: Closed fracture of base of skull with subarachnoid hemorrhage, initial encounter Closed fracture of base of skull with subarachnoid hemorrhage, initial encounter : Reviewed Diagnostic Tests Indication: Closed fracture of base of skull with subarachnoid hemorrhage, initial encounter Closed fracture of base of skull with subarachnoid hemorrhage, initial encounter : Reviewed Circulation Man Letter Indication: Closed fracture of base of skull with subarachnoid hemorrhage, initial encounter Otalgia, bilateral : Reviewed Circulation Man Letter Indication: Otalgia, bilateral Encounter for screening for malignant neoplasm of [...] Indication: HTN (hypertension), benign Planned Observations TSH (64808)Indication: High triglycerides On: Request URINALYSIS, W/ MICRO (58911)Indication: HTN (hypertension), benign On: Request MICROALBUMIN: CREATININE RATIO (64840) AND (78471)Indication: HTN (hypertension), benign On: Request METABOLIC PANEL, COMPREHENSIVE (25251)Indication: HTN (hypertension), benign On: Request CBC W/AUTO DIFF WBC (64766)Indication: HTN (hypertension), benign On: Request LIPID PANEL (35379)Indication: High triglycerides On: 34 Request TSH (99100)Indication: HTN (hypertension), benign On: : Request URINALYSIS, W/ MICRO (57469)Indication: HTN (hypertension), benign On: : Request MICROALBUMIN: CREATININE RATIO (92663) AND (06842)Indication: HTN (hypertension), benign On: : Request METABOLIC PANEL, COMPREHENSIVE (09242)Indication: HTN (hypertension), benign On: : Request LIPID PANEL (35838)Indication: HTN (hypertension), benign On: : Request CBC with auto diff (88181)Indication: HTN (hypertension), benign On: : Request Planned Encounters Medical; 3 Month FU - On: 30-Jan-2019 8:30 [facility] Twila Mckeon DO, DO, Kathleen Planned Procedures Doppler Ultrasound OtherBy: Mike On: 31-Oct-2018 Twila Sahu DO, DO, Kathleen Comments: b/l ELECTROCARDIOGRAM, COMPLETE (ECG) On: 16-Oct-2017 Intent (63139)By: Twila Mckeon DO Comments: nsr no acute chg Twila Mckeon DO Flu Vaccine (Quadrivalent) 81785Ve: On: 16-Oct-2017 Intent Twila Mckeon DO, DO, Comments: lot: [id number]: 05/07/18ite/route: L mike, IMamt: 0.5mlVIS and ABN signed when applicableROSEANNE Daniels Flu Vaccine (Quadrivalent) 38048Xv: On: 30-Sep-2015 Intent Twila Mckeon DO, DO, Comments: Lot:[id number]:05/19/16Amt:0.5mlRoute:IMSite: L DltdGiven By: RAFY CRONINVIS signed Twila Solu- Medrol Injection, 125mg On: 30-Sep-2015 Intent (J2930)By: Twila Mckeon DO Comments: 2 ml given im lt hip lot [id number] EXP 318 CM Twila Ramos DO EKG (39063)By: Twila Mckeon DO On: 25-Dec-2014 Intent Twila Mckeon DO Comments: nsr no acute chg Nuclear Medicine - HIDA w/CPKBy: On: 18-Feb-2014 Twila Chaudhary DO, DO, Kathleen EKG (42936)By: Twila Mckeon DO On: 17-Feb-2014 Intent Tiwla Mckeon DO Comments: nsr no acute chg Ultrasound - GallbladderBy: Mike On: 17-Feb-2014 Twila Sahu DO, DO, Kathleen Planned Medications INJECTION, METHYLPREDNISOLONE SODIUM SUCCINATE, UP TO 125 MG Ordered: 30-Sep-2015 Pending Twila Mckeon DO, DO, Kathleen Instructions Name Dates Details Otalgia, bilateral : Patient Instructions Indication: Otalgia, bilateral Nonsmoker : How to access health information [...] HTN (hypertension), benign Encounters Office Visit On: 31-Oct-2018 13:02 Encounter Reason: Follow up hospital - Reason for ER visit: note: (Aug 28 he was in [place] [address] [place] [address] [place] the road and was in 3 different hosp for 2 months ??he was discharged 2 weeks ago today End: 31-Oct-2018 17:17 [facility]. Broken traumatic brain injury, and several fx, had a dvt and pneumonia. He is set up to do the speech therapy at [facility] The patient feels well with min or complaints and is sleeping well. Patient has been compliant with instructions. Current medication use: no side effects. Patient sleeps 8 hours per night. Nutrition: balanced diet.Encounter Diagnosis: Closed fracture of base of skull with subarachnoid hemorrhage, initial encounter, Acute subdural hematoma, Acute deep vein thrombosis (DVT) of femoral vein of left lower extremity, Otalgia, bilateral, Cyst of skin, ETD (Eustachian tube dysfunction), bilateral [facility] Office Visit On: 16-Oct-2017 14:53 [...] Pain,RUQ(789.01) [facility] Payers Michelle BERNAL/Diana Guzman; a guarantor
--- OUTSIDE RECORDS SUMMARY | 2019-02-06 22:16 | XMS RPT_ITS ---
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 UAMIC #### [facility] [address] URINALYSIS,MICROSCOPIC Collected: Status: F Source: [facility] 09/13/2018 7:43 AM HEALTH SYSTEM REPOSITORY TYPE CODE TESTS RESULT OUT OF REFERENCE UNITS RANGE LAB WBCU 0-5 /[HPF] WBC,Urine 3 - 5 LAB RBCU 0-2 /[HPF] RBC,Urine 6 - 10 LAB EPIU 3-5 /[HPF] Epithelial Cells 3 - 5 LAB JOSEPHINE Negative NA Bacteria Few (1-5) Performed By: #### UAMAC, UAMIC #### [facility] [address] [place] [address] Observed: 09/13/2018 Status: F Source: [facility] CULTURE URINE 7:43 AM SYSTEM REPOSITORY Order Comment: Specimen Source Comment:Urine, clean catch CULTURE URINE --> Status: F No growth (<1,000 CFU/ml). Performed By: #### C/UR #### [facility] [address] [place] [address] HEMOGRAM W/ AUTODIFF Collected: 09/13/2018 Status: F Source: [facility] 3:14 AM SYSTEM REPOSITORY TYPE CODE TESTS RESULT OUT OF RANGE REFERENCE UNITS LAB IWBC 3.6-10.7 10*3/uL High WBC 20.8 LAB RBC 4.40-5.90 10*6/uL Low RBC 2.78 LAB HGB 13.0-18.0 g/dL Low Hemoglobin 8.9 LAB HCT 40.0-52.0 % Low Hematocrit 26.4 LAB MCV 80.0-98.0 fL MCV Normal 95.1 LAB MCH 26.0-34.0 pg MCH Normal 32.1 LAB MCHC 32.0-36.0 % MCHC Normal 33.7 LAB RDW 11.5-14.5 % RDW Normal 13.1 LAB PLT 140-440 10*3/uL High Platelet 861 Result Comment: REPEATED LAB MPV 7.4-10.4 fL Normal MPV 8.3 LAB GRAN% 40.0-80.0 % High Granulocytes 81.1 LAB LYMP% 20.0-40.0 % Low Lymphocytes 8.1 LAB MONO% 2.0-10.0 % Normal Monocytes 7.9 LAB EOS% 1.0-6.0 % Normal Eosinophils 2.1 LAB BAS% 0.0-2.0 % Normal Basophils 0.8 LAB ANC 1.8-7.0 10*3/uL High Abs Neutrophile Cnt 16.9 LAB ALC 1.0-4.3 10*3/uL Normal Abs Lymph Cnt 1.7 LAB AMC 0.0-0.8 10*3/uL High Abs Monocyte Cnt 1.6 LAB AEC 0.0-0.5 10*3/uL Normal Abs Eosin Cnt 0.4 LAB ABC 0.0-0.2 10*3/uL Normal Abs Baso Cnt 0.2 Performed By: #### HEMDF, BMP3 #### [facility] [address] [place] [phone] BASIC METABOLIC PANEL Collected: 09/13/2018 Status: F Source: [facility] 3:14 AM SYSTEM REPOSITORY TYPE CODE TESTS RESULT OUT OF RANGE REFERENCE UNITS LAB NA3 137-145 mmol/L Sodium Normal 139 LAB K3 3.5-5.1 mmol/L Normal Potassium 4.2 LAB CL3 98-107 mmol/L High Chloride 108 LAB CO23 22-30 mmol/L Carbon Normal Dioxide 22 LAB ANIN3 NA Anion Gap 9 LAB GLUC3 70-100 mg/dL High Glucose 164 LAB BUN3 7-20 mg/dL Urea Normal Nitrogen 19 LAB CRET3 0.52-1.25 mg/dL Normal Creatinine 0.89 LAB GF3BR >60 mL/min eGFR > 60.0 LAB GF3WR >60 mL/min eGFR OTHER > 60.0 Result Comment: Source- MDRD equation with creatinine calibration to IDMS(NKDEP) eGFR not recommended for drug dose adjustment LAB CA3 8.4-10.4 mg/dL Low Calcium 8.3 Performed By: #### HEMDF, BMP3 #### [facility] [address] [place] [phone] US EXTREMITY NON Observed: 09/13/2018 Status: F Source: [facility] VASCULAR COMPLETE 2:11 AM SYSTEM REPOSITORY Patient Name: JANET GUZMAN Ultrasound Exam Date/Time 09/12/2018 23:52:00 EDT Exam US Extremity Non Vascular Complete Ordering Physician MD DANIELLA, ZAINSTEVEN Accession Number [id number] CPT4 Codes 79250 (US Extremity Non Vascular Complete) Reason For Exam right thigh fluid collection Report Ultrasound right thigh CLINICAL INDICATION: Right thigh fluid collection Ultrasound was directed to the area of swelling along the lateral right side. There is a large fluid collection which exceeds a single [id number]. Internal echoes are noted. Superficially the collection extends to just below skin. Collection appears to be within the subcutaneous tissues and does not definitely involve intramuscular space. Estimated dimensions are about 34 cm in length from composite of images by about 11 cm transverse and 6 cm AP. The collection contains some internal echoes and a few septations and most likely represents a hematoma. IMPRESSION: Area of clinically noted swelling right lateral thigh is a fluid collection with some internal echoes and a few septations, most likely representing a subcutaneous hematoma. This does not obviously involve muscle. Report Dictated on Workstation: [id number] Final Dictated: 09/13/2018 2:11 am Dictating Physician: MD CLEARY DIANE Signed Date and Time: 09/13/2018 2:15 am Signed by: MD CLEARY DIANE Transcribed Date and Time: 09/13/2018 2:11 Observed: 09/12/2018 Status: F Source: [facility] CULTURE BLOOD 8:35 PM SYSTEM REPOSITORY Order Comment: Specimen Source Comment:Blood CULTURE BLOOD --> Status: F No growth at 5 days. Performed By: #### C/BLD #### [facility] [address] [place] [address] PROCALCITONIN Collected: 09/12/2018 Status: F Source: [facility] 1:50 PM SYSTEM REPOSITORY TYPE CODE TESTS RESULT OUT OF RANGE REFERENCE UNITS LAB PRO <0.10 ng/mL Procalcitonin Abnormal 0.28 LAB INT3 NA Interpretation See Below Result Comment: PCT <0.50 = Low risk of severe sepsis and/or septic shock. PCT >2.00 = High risk of severe sepsis and/or septic shock. Performed By: #### PCAL #### [facility] [address] [place] [address] #### VD25H #### [facility] [address] [facility] [place] [address] VIT D 25-OH, TOTAL Collected: 09/12/2018 Status: F Source: [facility] 1:50 PM SYSTEM REPOSITORY TYPE CODE TESTS RESULT OUT OF RANGE REFERENCE UNITS LAB VD25H 30-100 ng/mL Low Vit D < 13 25-OH, Total Result Comment: Therapy is based on measurement of Total 25-OHD with the following classification levels: Less than 20 ng/mL: Indicative of Vit D deficiency 20-30 ng/mL: Suggests Vit D insufficiency Optimal: Greater than or equal to 30 ng/mL Test performed by BitCom[employer] Competitive Immunoassay, measuring Total Vitamin D, not individual fractions. Performed By: #### PCAL #### [facility] [address] [place] [address] #### VD25H #### [facility] [address] [place] [address] Observed: 09/12/2018 Status: F Source: [facility] CULTURE BLOOD (TWO) 1:50 PM SYSTEM REPOSITORY Order Comment: Specimen Source Comment:Blood CULTURE BLOOD (Two) --> Status: F Staphylococcus species (probable Coagulase negative Staph) ? DETECTED mecA (methicillin resistance gene) ? DETECTED Presumptive identification performed using BioFire FilmArray PCR methodology; confirmatory identification to follow. The following targets were NOT DETECTED unless otherwise stated above in report: Staphylococcus aureus, Staphylococcus species, Enterococcus species, Streptococcus species, Streptococcus agalactiae (Group B), Streptococcus pneumoniae, Streptococcus pyogenes (Group A), Listeria monocytogenes, Acinetobacter baumannii, Enterobacteriaceae, Enterobacter cloacae complex, E. coli, Klebsiella oxytoca, Klebsiella pneumoniae, Proteus species, Serratia marcescens, Pseudomonas aeruginosa, Haemophilus influenzae, Neisseria meningitidis, Trice albicans, Trice glabrata, Trice krusei, Trice parapsilosis, Trice tropicalis. The following antibiotic resistance targets were NOT DETECTED unless otherwise stated above in report: mecA (methicillin resistance gene) and van A/B (vancomycin resistance gene). DETECTED mecA (methicillin resistance gene) ? DETECTED Presumptive identification performed using BioFire FilmArray PCR methodology; confirmatory identification to follow. The following targets were NOT DETECTED unless otherwise stated above in report: Staphylococcus aureus, Staphylococcus species, Enterococcus species, Streptococcus species, Streptococcus agalactiae (Group B), Streptococcus pneumoniae, Streptococcus pyogenes (Group A), Listeria monocytogenes, Acinetobacter baumannii, Enterobacteriaceae, Enterobacter cloacae complex, E. coli, Klebsiella oxytoca, Klebsiella pneumoniae, Proteus species, Serratia marcescens, Pseudomonas aeruginosa, Haemophilus influenzae, Neisseria meningitidis, Trice albicans, Trice glabrata, Trice krusei, Trice parapsilosis, Trice tropicalis. The following antibiotic resistance targets were NOT DETECTED unless otherwise stated above in report: mecA (methicillin resistance gene) and van A/B (vancomycin resistance gene). 1 Organism (Coagulase-negative) Staphylococcus epidermidis Isolated: Contamination likely unless additional blood culture sets are found to be positive with the same organism. Performed By: #### C/BLT #### [facility] [address] [address] CR CHEST 1 VIEW Observed: 09/12/2018 Status: F Source: [facility] FRONTAL 8:17 AM SYSTEM REPOSITORY Patient Name: JANET GUZMAN Diagnostic Radiology Exam Date/Time 09/12/2018 06:09:31 EDT Exam CR Chest 1 View Frontal Ordering Physician AUGUSTIN VILLATORO Accession Number [id number] CPT4 Codes 53266 () Reason For Exam ETT, CT placement Report Indication: Shortness of breath. A frontal view of the chest timed 06 is compared to the study dated 09/11/2018. Again identified is a tracheostomy tube and right-sided PICC line. No sizable pneumothorax is seen. The heart is unchanged in size. The mediastinum is unchanged in appearance. Patchy right mid and lower lung infiltrates are visualized. These are similar to the prior study. Mild atelectatic changes are identified in the left lung base. Again identified is a comminuted displaced right clavicular fracture. Right- sided rib fractures are also visualized. There are postsurgical changes of the left shoulder. There has been no significant change. Report Dictated on Final Dictated: 09/12/2018 8:17 am Dictating Physician: DO SNYDER ANTHONY Signed Date and Time: 09/12/2018 8:18 am Signed by: DO SNYDER ANTHONY Transcribed Date and Time: 09/12/2018 8:17 ARTERIAL BLOOD GASES Collected: 09/12/2018 Status: F Source: [facility] 3:45 AM SYSTEM REPOSITORY TYPE CODE TESTS RESULT OUT OF RANGE REFERENCE UNITS LAB HGBG ScreenOnly g/dL Hemoglobin 9.6 LAB PHG 7.350-7.450 NA High pH 7.520 LAB PCO2 35.0-45.0 mm[Hg] Low pCO2 23.6 LAB PO2 80.0-100.0 mm[Hg] High pO2 104.5 LAB HCO3 21.0-25.0 mmol/L Low HCO3 18.8 LAB TCO2 23.0-27.0 mmol/L Low TCO2 19.6 LAB SBE -3.0-3.0 mmol/L Std Base Normal Excess -2.9 LAB O2SAT 95.0-100.0 % O2 Normal Saturation 98.0 LAB FIO2 NA FIO2 .30 Performed By: #### ABG #### [facility] [employer] [address] [place] [phone] HEMOGRAM W/ AUTODIFF Collected: 09/12/2018 Status: F Source: [facility] 2:21 AM SYSTEM REPOSITORY TYPE CODE TESTS RESULT OUT OF RANGE REFERENCE UNITS LAB IWBC 3.6-10.7 10*3/uL High WBC 16.3 LAB RBC 4.40-5.90 10*6/uL Low RBC 3.07 LAB HGB 13.0-18.0 g/dL Low Hemoglobin 9.8 LAB HCT 40.0-52.0 % Low Hematocrit 29.0 LAB MCV 80.0-98.0 fL MCV Normal 94.5 LAB MCH 26.0-34.0 pg MCH Normal 31.8 LAB MCHC 32.0-36.0 % MCHC Normal 33.7 LAB RDW 11.5-14.5 % RDW Normal 13.2 LAB PLT 140-440 10*3/uL High Platelet 872 Result Comment: repeated LAB MPV 7.4-10.4 fL Normal MPV 8.4 LAB GRAN% 40.0-80.0 % Normal Granulocytes 72.6 LAB LYMP% 20.0-40.0 % Low Lymphocytes 13.1 LAB MONO% 2.0-10.0 % High Monocytes 10.3 LAB EOS% 1.0-6.0 % Normal Eosinophils 3.2 LAB BAS% 0.0-2.0 % Normal Basophils 0.8 LAB ANC 1.8-7.0 10*3/uL High Abs Neutrophile Cnt 11.9 LAB ALC 1.0-4.3 10*3/uL Normal Abs Lymph Cnt 2.1 LAB AMC 0.0-0.8 10*3/uL High Abs Monocyte Cnt 1.7 LAB AEC 0.0-0.5 10*3/uL Normal Abs Eosin Cnt 0.5 LAB ABC 0.0-0.2 10*3/uL Normal Abs Baso Cnt 0.1 Performed By: #### HEMDF, BMP3, MG3, PHOS3 #### [facility] [address] [place] [phone] BASIC METABOLIC PANEL Collected: 09/12/2018 Status: F Source: [facility] 2:21 AM SYSTEM REPOSITORY TYPE CODE TESTS RESULT OUT OF RANGE REFERENCE UNITS LAB NA3 137-145 mmol/L Low Sodium 131 LAB K3 3.5-5.1 mmol/L Normal Potassium 4.5 LAB CL3 98-107 mmol/L Chloride Normal 106 LAB CO23 22-30 mmol/L Carbon Normal Dioxide 22 LAB ANIN3 NA Anion Gap 4 LAB GLUC3 70-100 mg/dL High Glucose 126 LAB BUN3 7-20 mg/dL Urea Normal Nitrogen 18 LAB CRET3 0.52-1.25 mg/dL Normal Creatinine 0.84 LAB GF3BR >60 mL/min eGFR > 60.0 LAB GF3WR >60 mL/min eGFR OTHER > 60.0 Result Comment: Source- MDRD equation with creatinine calibration to IDMS(NKDEP) eGFR not recommended for drug dose adjustment LAB CA3 8.4-10.4 mg/dL Normal Calcium 8.7 Performed By: #### HEMDF, BMP3, MG3, PHOS3 #### [facility] [address] [place], [place] [id number] MAGNESIUM Collected: 09/12/2018 Status: F Source: [facility] 2:21 AM SYSTEM REPOSITORY TYPE CODE TESTS RESULT OUT OF REFERENCE UNITS RANGE LAB MG3 1.6-2.3 mg/dL High Magnesium 2.4 Performed By: #### HEMDF, BMP3, MG3, PHOS3 #### [facility] [address] [place], [place] [id number] PHOSPHORUS Collected: 09/12/2018 Status: F Source: [facility] 2:21 AM SYSTEM REPOSITORY TYPE CODE TESTS RESULT OUT OF RANGE REFERENCE UNITS LAB PHOS3 2.5-4.5 mg/dL Normal Phosphorus 3.5 Performed By: #### HEMDF, BMP3, MG3, PHOS3 #### [facility] [address] [place], [place] [id number] CR CHEST PORTABLE Observed: 09/11/2018 Status: F Source: [facility] 11:13 PM SYSTEM REPOSITORY Patient Name: JANET GUZMAN Diagnostic Radiology Exam Date/Time 09/11/2018 22:54:16 EDT Exam CR Chest Portable Ordering Physician MD DANIELLA, [facility] Accession Number [id number] CPT4 Codes 05616 () Reason For Exam s/p chest tube removal Report PORTABLE CHEST: INDICATION: Status post chest tube removal COMPARISON: Compared to a prior study performed earlier today at 0558 hours Obtained at 2247 hours. A single portable AP radiograph of the chest was obtained. The heart is normal in size. The mediastinal silhouette is normal. Chronic interstitial changes are present. The right-sided chest tube has been removed. No pneumothorax. A PICC is present on the right with the tip of the catheter overlying the superior vena cava. The tracheostomy is unchanged. There is no pleural thickening. Arthritic changes of the spine and shoulders are present. IMPRESSION: Status post removal of chest tube. No pneumothorax. Chronic interstitial changes are present with continued pulmonary congestion. Report Dictated on Final Dictated: 09/11/2018 11:13 pm Dictating Physician: DO SANDERS ALFRED Signed Date and Time: 09/11/2018 11:16 pm Signed by: DO SANDERS ALFRED Transcribed Date and Time: 09/11/2018 11:13 CR CHEST 1 VIEW Observed: 09/11/2018 Status: F Source: [employer] 7:50 AM SYSTEM REPOSITORY Patient Name: JANET GUZMAN Diagnostic Radiology Exam Date/Time 09/11/2018 06:37:24 EDT Exam CR Chest 1 View Frontal Ordering Physician AUGUSTIN VILLATORO Accession Number [id number] CPT4 Codes 63945 () Reason For Exam ETT, CT placement Report PORTABLE CHEST CLINICAL INDICATION: ET and chest tube tube placement. COMPARISON: Yesterday. TECHNIQUE: A single frontal view of thorax was obtained and reviewed. Right lung base is excluded from the image, limiting evaluation. IMPRESSION: 1. Lines/ tubes/ devices: Tracheostomy, right-sided chest tube and right-sided PICC line are unchanged in position. 2. Lungs and Pleura: Diffuse right lung infiltrates 3. Heart and mediastinum: Normal cardiomediastinal margin. 4. Bones: Displaced, comminuted right mid clavicular fracture is redemonstrated. Right mid lateral rib fracture is unchanged. Report Dictated on Final Dictated: 09/11/2018 7:50 am Dictating Physician: RENZO ARZATE DO, I Signed Date and Time: 09/11/2018 7:53 am Signed by: RENZO ARZATE DO, I Transcribed Date and Time: 09/11/2018 7:50 ARTERIAL BLOOD GASES Collected: 09/11/2018 Status: F Source: [facility] 3:47 AM SYSTEM REPOSITORY TYPE CODE TESTS RESULT OUT OF RANGE REFERENCE UNITS LAB HGBG ScreenOnly g/dL Hemoglobin 9.3 LAB PHG 7.350-7.450 NA High pH 7.522 LAB PCO2 35.0-45.0 mm[Hg] Low pCO2 24.4 LAB PO2 80.0-100.0 mm[Hg] pO2 Normal 80.3 LAB HCO3 21.0-25.0 mmol/L Low HCO3 19.6 LAB TCO2 23.0-27.0 mmol/L Low TCO2 20.3 LAB SBE -3.0-3.0 mmol/L Std Base Normal Excess -2.3 LAB O2SAT 95.0-100.0 % O2 Normal Saturation 96.2 LAB FIO2 NA FIO2 .30 Performed By: #### ABG #### [facility] [address] [place] [phone] HEMOGRAM W/ AUTODIFF Collected: 09/11/2018 Status: F Source: [facility] 2:35 AM SYSTEM REPOSITORY TYPE CODE TESTS RESULT OUT OF REFERENCE UNITS RANGE LAB IWBC 3.6-10.7 10*3/uL WBC High 13.2 LAB RBC 4.40-5.90 10*6/uL Low RBC 2.77 LAB HGB 13.0-18.0 g/dL Low Hemoglobin 9.0 LAB HCT 40.0-52.0 % Low Hematocrit 26.4 LAB MCV 80.0-98.0 fL MCV Normal 95.2 LAB MCH 26.0-34.0 pg MCH Normal 32.4 LAB MCHC 32.0-36.0 % MCHC Normal 34.0 LAB RDW 11.5-14.5 % RDW Normal 13.4 LAB PLT 140-440 10*3/uL Platelet High 689 LAB MPV 7.4-10.4 fL MPV Normal 8.8 LAB GRAN% 40.0-80.0 % Granulocytes Normal 76.7 LAB LYMP% 20.0-40.0 % Low Lymphocytes 11.6 LAB MONO% 2.0-10.0 % Monocytes Normal 7.4 LAB EOS% 1.0-6.0 % Eosinophils Normal 3.7 LAB BAS% 0.0-2.0 % Basophils Normal 0.6 LAB ANC 1.8-7.0 10*3/uL Abs High Neutrophile Cnt 10.1 LAB ALC 1.0-4.3 10*3/uL Abs Lymph Cnt Normal 1.5 LAB AMC 0.0-0.8 10*3/uL Abs Monocyte High Cnt 1.0 LAB AEC 0.0-0.5 10*3/uL Abs Eosin Cnt Normal 0.5 LAB ABC 0.0-0.2 10*3/uL Abs Baso Cnt Normal 0.1 Performed By: #### HEMDF, BMP3, MG3, PHOS3 #### [facility] [address] [place] [phone] BASIC METABOLIC PANEL Collected: 09/11/2018 Status: F Source: [facility] 2:35 AM SYSTEM REPOSITORY TYPE CODE TESTS RESULT OUT OF RANGE REFERENCE UNITS LAB NA3 137-145 mmol/L Low Sodium 136 LAB K3 3.5-5.1 mmol/L Normal Potassium 4.2 LAB CL3 98-107 mmol/L High Chloride 108 LAB CO23 22-30 mmol/L Carbon Normal Dioxide 23 LAB ANIN3 NA Anion Gap 6 LAB GLUC3 70-100 mg/dL High Glucose 164 LAB BUN3 7-20 mg/dL Urea Normal Nitrogen 18 LAB CRET3 0.52-1.25 mg/dL Normal Creatinine 0.81 LAB GF3BR >60 mL/min eGFR > 60.0 LAB GF3WR >60 mL/min eGFR OTHER > 60.0 Result Comment: Source- MDRD equation with creatinine calibration to IDMS(NKDEP) eGFR not recommended for drug dose adjustment LAB CA3 8.4-10.4 mg/dL Normal Calcium 8.6 Performed By: #### HEMDF, BMP3, MG3, PHOS3 #### [facility] [address] [place] [phone] MAGNESIUM Collected: 09/11/2018 Status: F Source: [facility] 2:35 AM SYSTEM REPOSITORY TYPE CODE TESTS RESULT OUT OF RANGE REFERENCE UNITS LAB MG3 1.6-2.3 mg/dL Normal Magnesium 2.3 Performed By: #### HEMDF, BMP3, MG3, PHOS3 #### [facility] [address] [place] [address] PHOSPHORUS Collected: 09/11/2018 Status: F Source: [facility] 2:35 AM SYSTEM REPOSITORY TYPE CODE TESTS RESULT OUT OF RANGE REFERENCE UNITS LAB PHOS3 2.5-4.5 mg/dL Normal Phosphorus 3.3 Performed By: #### HEMDF, BMP3, MG3, PHOS3 #### [employer] [employer] [address] HEMOGLOBIN AND Collected: 09/10/2018 Status: F Source: [facility] HEMATOCRIT 2:25 PM SYSTEM REPOSITORY TYPE CODE TESTS RESULT OUT OF REFERENCE UNITS RANGE LAB HGB 13.0-18.0 g/dL Low Hemoglobin 8.6 LAB HCT 40.0-52.0 % Low Hematocrit 25.5 Performed By: #### HGHCT, FEIBC, FERR3 #### [facility] [address] [place] [address] IRON AND TIBC Collected: 09/10/2018 Status: F Source: [facility] 2:25 PM SYSTEM REPOSITORY TYPE CODE TESTS RESULT OUT OF REFERENCE UNITS RANGE LAB IRON3 49-181 ug/dL Low Iron, Total 22 LAB TIBC3 261-497 ug/dL Low Total Iron Binding 239 Cap. LAB SAT3 15-50 % Low Saturation 9 Performed By: #### HGHCT, FEIBC, FERR3 #### [facility] [address] [place] [address] FERRITIN Collected: 09/10/2018 Status: F Source: [facility] 2:25 PM SYSTEM REPOSITORY TYPE CODE TESTS RESULT OUT OF REFERENCE UNITS RANGE LAB 3FERR 18-464 ng/mL High Ferritin 602 Performed By: #### HGHCT, FEIBC, FERR3 #### [employer] [employer] [address] CR CHEST 1 VIEW Observed: 09/10/2018 Status: F Source: [facility] 9:06 AM SYSTEM REPOSITORY Patient Name: JANET GUZMAN Diagnostic Radiology Exam Date/Time 09/10/2018 06:29:16 EDT Exam CR Chest 1 View Frontal Ordering Physician SHAUNA AUGUSTIN Accession Number [id number] CPT4 Codes 90438 () Reason For Exam ETT, CT placement Report Examination: Portable chest Indication: ETT, CT placement Comparison: Previous day Findings: There is no significant interval change. Support devices are in similar position including tracheostomy and right IJ central venous catheter. The cardiac silhouette is enlarged. There is a diffuse infiltrate of the right lung. Possible small right-sided pleural effusion. Right-sided chest tube is present without sizable pneumothorax. Follow-up is recommended. Impression: As above. Report Dictated on Final Dictated: 09/10/2018 9:06 am Dictating Physician: MD JOHNSTON KRIKOR Signed Date and Time: 09/10/2018 9:07 am Signed by: MD JOHNSTON KRIKOR Transcribed Date and Time: 09/10/2018 9:06 Observed: 09/10/2018 Status: F Source: [facility] TS GEL 4:37 AM SYSTEM REPOSITORY ABO Group: AB Rh, Gel: POS Antibody Screen Gel: NEG Performed By: #### TSGL #### [facility] [address] [place] [address] [place] [address] #### LRC #### [address] [address] [place] [address] Observed: 09/10/2018 Status: F Source: [facility] LEUKODEPLETED RED CELLS 4:37 AM SYSTEM REPOSITORY Leukodepleted Red Cells: [id number] released 09/13/18 04:25 ERR Unit Blood Type: AB Unit Blood Rh: NEG Blood Product Code: LP2 Unit Number: [id number] Unit Status: released Barcoded Unit Number: =[id number] Barcoded Product Code: =<G9364O81 Barcoded ABO/Rh: =%2800 Unit Expiration: [id number] Leukodepleted Red Cells: [id number] released 09/13/18 04:25 ERR Unit Blood Type: AB Unit Blood Rh: NEG Blood Product Code: LP1 Unit Number: [id number] Unit Status: released Barcoded Unit Number: =[id number] Barcoded Product Code: =<[id number] Barcoded ABO/Rh: =%2800 Unit Expiration: [id number] Performed By: #### TSGL #### [employer] [facility] [address] [place] [address] #### LRC #### [address] [address] [place] [address] BASIC METABOLIC PANEL Collected: 09/10/2018 Status: F Source: [facility] 2:49 AM SYSTEM REPOSITORY TYPE CODE TESTS RESULT OUT OF RANGE REFERENCE UNITS LAB NA3 137-145 mmol/L Sodium Normal 139 LAB K3 3.5-5.1 mmol/L Normal Potassium 3.7 LAB CL3 98-107 mmol/L High Chloride 113 LAB CO23 22-30 mmol/L Carbon Normal Dioxide 22 LAB ANIN3 NA Anion Gap 4 LAB GLUC3 70-100 mg/dL High Glucose 143 LAB BUN3 7-20 mg/dL Urea Normal Nitrogen 20 LAB CRET3 0.52-1.25 mg/dL Normal Creatinine 0.75 LAB GF3BR >60 mL/min eGFR > 60.0 LAB GF3WR >60 mL/min eGFR OTHER > 60.0 Result Comment: Source- MDRD equation with creatinine calibration to IDMS(NKDEP) eGFR not recommended for drug dose adjustment LAB CA3 8.4-10.4 mg/dL Low Calcium 7.9 Performed By: #### HEMDF, BMP3, MG3, PHOS3 #### [facility] [address] [place] [address] MAGNESIUM Collected: 09/10/2018 Status: F Source: [facility] 2:49 AM SYSTEM REPOSITORY TYPE CODE TESTS RESULT OUT OF RANGE REFERENCE UNITS LAB MG3 1.6-2.3 mg/dL Normal Magnesium 2.2 Performed By: #### HEMDF, BMP3, MG3, PHOS3 #### [facility] [address] [place] [address] PHOSPHORUS Collected: 09/10/2018 Status: F Source: [facility] 2:49 AM SYSTEM REPOSITORY TYPE CODE TESTS RESULT OUT OF RANGE REFERENCE UNITS LAB PHOS3 2.5-4.5 mg/dL Normal Phosphorus 3.5 Performed By: #### HEMDF, BMP3, MG3, PHOS3 #### [facility] [address] [place] [address] HEMOGRAM W/ AUTODIFF Collected: 09/10/2018 Status: F Source: [facility] 2:34 AM SYSTEM REPOSITORY TYPE CODE TESTS RESULT OUT OF REFERENCE UNITS RANGE LAB IWBC 3.6-10.7 10*3/uL WBC High 11.2 LAB RBC 4.40-5.90 10*6/uL Low RBC 2.08 LAB HGB 13.0-18.0 g/dL Low Alert Hemoglobin 6.7 Result Comment: repeated, no clot LAB HCT 40.0-52.0 % Low Hematocrit 19.9 LAB MCV 80.0-98.0 fL Normal MCV 96.0 LAB MCH 26.0-34.0 pg Normal MCH 32.5 LAB MCHC 32.0-36.0 % Normal MCHC 33.9 LAB RDW 11.5-14.5 % Normal RDW 13.3 LAB PLT 140-440 10*3/uL High Platelet 515 Result Comment: repeated, no clot LAB MPV 7.4-10.4 fL Normal MPV 8.7 LAB GRAN% 40.0-80.0 % Normal Granulocytes 76.7 LAB LYMP% 20.0-40.0 % Low Lymphocytes 11.3 LAB MONO% 2.0-10.0 % Normal Monocytes 6.5 LAB EOS% 1.0-6.0 % Normal Eosinophils 4.9 LAB BAS% 0.0-2.0 % Normal Basophils 0.6 LAB ANC 1.8-7.0 10*3/uL High Abs Neutrophile Cnt 8.6 LAB ALC 1.0-4.3 10*3/uL Normal Abs Lymph Cnt 1.3 LAB AMC 0.0-0.8 10*3/uL Normal Abs Monocyte Cnt 0.7 LAB AEC 0.0-0.5 10*3/uL Normal Abs Eosin Cnt 0.5 LAB ABC 0.0-0.2 10*3/uL Normal Abs Baso Cnt 0.1 Performed By: #### HEMDF, BMP3, MG3, PHOS3 #### [facility] [address] [place] [address] ARTERIAL BLOOD GASES Collected: 09/10/2018 Status: F Source: [facility] 2:34 AM SYSTEM REPOSITORY TYPE CODE TESTS RESULT OUT OF RANGE REFERENCE UNITS LAB HGBG ScreenOnly g/dL Hemoglobin 8.6 LAB PHG 7.350-7.450 NA High pH 7.507 LAB PCO2 35.0-45.0 mm[Hg] Low pCO2 24.6 LAB PO2 80.0-100.0 mm[Hg] High pO2 105.1 LAB HCO3 21.0-25.0 mmol/L Low HCO3 19.1 LAB TCO2 23.0-27.0 mmol/L Low TCO2 19.8 LAB SBE -3.0-3.0 mmol/L Low Std Base Excess -3.2 LAB O2SAT 95.0-100.0 % O2 Normal Saturation 97.7 LAB FIO2 NA FIO2 .30 Performed By: #### ABG #### [facility] [address] [place] [id number] CR CLAVICLE COMPLETE Observed: 09/09/2018 Status: F Source: [facility] 8:31 AM SYSTEM REPOSITORY Patient Name: JANET GUZMAN Diagnostic Radiology Exam Date/Time 09/09/2018 08:11:56 EDT Exam CR Clavicle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 Sodium 146 LAB K3 3.5-5.1 mmol/L Normal Potassium 4.1 LAB CL3 98-107 mmol/L High Chloride 122 LAB CO23 22-30 mmol/L Carbon Normal Dioxide 22 LAB ANIN3 NA Anion Gap 2 LAB GLUC3 70-100 mg/dL High Glucose 122 LAB BUN3 7-20 mg/dL High Urea Nitrogen 27 LAB CRET3 0.52-1.25 mg/dL Normal Creatinine 0.87 LAB GF3BR >60 mL/min eGFR > 60.0 LAB GF3WR >60 mL/min eGFR OTHER > 60.0 Result Comment: Source- MDRD equation with creatinine calibration to IDMS(NKDEP) eGFR not recommended for drug dose adjustment LAB CA3 8.4-10.4 mg/dL Low Calcium 7.9 Performed By: #### PCAL, BMP3 #### [facility] [address] [place] [address] PROCALCITONIN Collected: 09/06/2018 Status: F Source: [facility] 12:03 PM SYSTEM REPOSITORY TYPE CODE TESTS RESULT OUT OF RANGE REFERENCE UNITS LAB PRO <0.10 ng/mL Procalcitonin Abnormal 0.47 LAB INT3 NA Interpretation See Below Result Comment: PCT <0.50 = Low risk of severe sepsis and/or septic shock. PCT >2.00 = High risk of severe sepsis and/or septic shock. Performed By: #### PCAL, BMP3 #### [facility] [address] [address] CR CHEST 1 VIEW Observed: 09/06/2018 Status: F Source: [facility] 5:48 AM SYSTEM REPOSITORY Patient Name: JANET GUZMAN Diagnostic Radiology Exam Date/Time 09/06/2018 05:42:18 EDT Exam CR Chest 1 View Frontal Ordering Physician AUGUSTIN VILLATORO Accession Number [id number] CPT4 Codes 75320 () Reason For Exam ETT, CT placement Report Portable chest 09/06/2016: Clinical Information: Chest tube placement, respiratory failure. Findings: A single AP portable view of the chest was obtained at 04/18/1990 hours. Comparison was made to the prior study prior day. The various lines and tubes are unchanged. There could be an evolving infiltrate in the right lung base. There may be a mild degree of pulmonary vascular congestion. No pneumothorax is identified. A fracture of the right midclavicle is now apparent. There is a fracture of a right lower rib. Report Dictated on Workstation: [id number][id number] Final Dictated: 09/06/2018 5:48 am Dictating Physician: MD MÉNDEZ RISA Signed Date and Time: 09/06/2018 5:52 am Signed by: MD MÉNDEZ RISA Transcribed Date and Time: 09/06/2018 5:48 ARTERIAL BLOOD GASES Collected: 09/06/2018 Status: F Source: [facility] 12:54 AM SYSTEM REPOSITORY TYPE CODE TESTS RESULT OUT OF RANGE REFERENCE UNITS LAB HGBG ScreenOnly g/dL Hemoglobin 9.7 LAB PHG 7.350-7.450 NA High pH 7.462 LAB PCO2 35.0-45.0 mm[Hg] Low pCO2 33.4 LAB PO2 80.0-100.0 mm[Hg] High pO2 111.0 LAB HCO3 21.0-25.0 mmol/L HCO3 Normal 23.3 LAB TCO2 23.0-27.0 mmol/L TCO2 Normal 24.4 LAB SBE -3.0-3.0 mmol/L Std Base Normal Excess -0.1 LAB O2SAT 95.0-100.0 % O2 Normal Saturation 97.3 LAB FIO2 NA FIO2 No data Performed By: #### ABG #### [facility] [address] [place] [phone] HEMOGRAM W/ AUTODIFF Collected: 09/06/2018 Status: F Source: [facility] 12:54 AM SYSTEM REPOSITORY TYPE CODE TESTS RESULT OUT OF RANGE REFERENCE UNITS LAB IWBC 3.6-10.7 10*3/uL High WBC 11.2 LAB RBC 4.40-5.90 10*6/uL Low RBC 2.51 LAB HGB 13.0-18.0 g/dL Low Hemoglobin 8.1 LAB HCT 40.0-52.0 % Low Hematocrit 24.3 LAB MCV 80.0-98.0 fL MCV Normal 96.5 LAB MCH 26.0-34.0 pg MCH Normal 32.3 LAB MCHC 32.0-36.0 % MCHC Normal 33.5 LAB RDW 11.5-14.5 % RDW Normal 14.2 LAB PLT 140-440 10*3/uL Platelet Normal 232 LAB MPV 7.4-10.4 fL MPV Normal 8.9 Performed By: #### HEMDF, PT, BMP3, MG3, PHOS3, MDIFF #### [facility] [address] [place] [phone] PROTHROMBIN TIME Collected: 09/06/2018 Status: F Source: [facility] 12:54 AM SYSTEM REPOSITORY TYPE CODE TESTS RESULT OUT OF REFERENCE UNITS RANGE LAB PROTM 9.0-12.0 s Prothrombin Normal Time 9.8 Result Comment: . LAB INR 0.9-1.1 NA Normal INR 0.9 Result Comment: Recommended Anticoagulant Therapy: SEE BELOW ----- INR of 2.0 - 3.0 : - Prophylaxis of Venous Thrombosis (high-risk surgery) - Treatment of Venous Thrombosis - Treatment of Pulmonary Embolism (Includes tissue heart valves, Acute Myocardial Infarction to prevent systemic embolism, Valvular Heart Disease, and Atrial Fibrillation) ----- INR of 2.5 - 3.5 : - Mechanical Prosthetic Valves (high risk) - If oral anticoagulant therapy is used to prevent Myocardial Infarction Performed By: #### HEMDF, PT, BMP3, MG3, PHOS3, MDIFF #### [facility] [address] [place] [phone] BASIC METABOLIC PANEL Collected: 09/06/2018 Status: F Source: [facility] 12:54 AM SYSTEM REPOSITORY TYPE CODE TESTS RESULT OUT OF RANGE REFERENCE UNITS LAB NA3 137-145 mmol/L High Sodium 147 LAB K3 3.5-5.1 mmol/L Normal Potassium 3.6 LAB CL3 98-107 mmol/L High Chloride 120 LAB CO23 22-30 mmol/L Carbon Normal Dioxide 26 LAB ANIN3 NA Anion Gap 1 LAB GLUC3 70-100 mg/dL High Glucose 122 LAB BUN3 7-20 mg/dL High Urea Nitrogen 29 LAB CRET3 0.52-1.25 mg/dL Normal Creatinine 0.90 LAB GF3BR >60 mL/min eGFR > 60.0 LAB GF3WR >60 mL/min eGFR OTHER > 60.0 Result Comment: Source- MDRD equation with creatinine calibration to IDMS(NKDEP) eGFR not recommended for drug dose adjustment LAB CA3 8.4-10.4 mg/dL Low Calcium 8.0 Performed By: #### HEMDF, PT, BMP3, MG3, PHOS3, MDIFF #### [facility] [address] [place] [phone] MAGNESIUM Collected: 09/06/2018 Status: F Source: [facility] 12:54 AM SYSTEM REPOSITORY TYPE CODE TESTS RESULT OUT OF REFERENCE UNITS RANGE LAB MG3 1.6-2.3 mg/dL High Magnesium 2.8 Performed By: #### HEMDF, PT, BMP3, MG3, PHOS3, MDIFF #### [facility] [address] [place] [phone] PHOSPHORUS Collected: 09/06/2018 Status: F Source: [facility] 12:54 AM SYSTEM REPOSITORY TYPE CODE TESTS RESULT OUT OF RANGE REFERENCE UNITS LAB PHOS3 2.5-4.5 mg/dL Normal Phosphorus 3.2 Performed By: #### HEMLEONILA, PT, BMP3, MG3, PHOS3, MDIFF #### [facility] [address] [place] [address] MANUAL DIFF Collected: 09/06/2018 Status: F Source: [facility] 12:54 AM SYSTEM REPOSITORY TYPE CODE TESTS RESULT OUT OF RANGE REFERENCE UNITS LAB NEUTR 40-80 % Seg Neutrophils Normal 67 LAB BANDS 0-3 % High Bands 10 LAB LYMPH 20-40 % Low Lymphocytes 5 LAB MONOC 2-10 % Monocytes Normal 10 LAB EO 1-6 % Eosinophils Normal 4 LAB BASO 0-2 % Basophils Normal 0 LAB META <1 % Metamyelocytes Abnormal 3 LAB MYELO <1 % Myelocytes Abnormal 1 LAB ANCM 2.2-8.2 10*3/uL High Abs Neutrophile Cnt 8.6 LAB ALCM 1.1-4.5 10*3/uL Low Abs Lymph Cnt 0.6 LAB AMCM 0.2-1.1 10*3/uL Abs Monocyte Cnt Normal 1.1 LAB AECM 0.0-0.5 10*3/uL Abs Eosin Cnt Normal 0.4 LAB ABCM 0.0-0.2 10*3/uL Abs Baso Cnt Normal 0.0 LAB RBMOR NA RBC Morphology ABNORMAL LAB ANISO NA Anisocytosis Slight LAB POIK NA Poikilocytosis Slight LAB MACRO NA Macrocytosis Slight LAB HYPOC NA Hypochromia Slight LAB POLYC NA Polychromasia Slight LAB OVAL NA Ovalocytes Slight LAB STOMA NA Stomatocytes Slight LAB TXGRN NA Toxic Granulation Slight LAB DOHLE NA Dohle Bodies Slight LAB LIMIT NA Cells counted 100 Performed By: #### HEMLEONILA, PT, BMP3, MG3, PHOS3, MDIFF #### [facility] [address] [place] [address] Observed: 09/06/2018 Status: F Source: [facility] TS GEL 12:54 AM SYSTEM REPOSITORY ABO Group: AB Rh, Gel: POS Antibody Screen Gel: NEG Performed By: #### TSGL #### [facility] [address] [address] CR CHEST PORTABLE Observed: 09/05/2018 Status: F Source: [facility] 9:49 PM SYSTEM REPOSITORY Patient Name: JANET GUZMAN Diagnostic Radiology Exam Date/Time 09/05/2018 17:00:19 EDT Exam CR Chest Portable Ordering Physician LINDA BRANNON Accession Number [id number] CPT4 Codes 59725 () Reason For Exam line placement Report EXAMINATION: Portable Chest, 1644 hours 09/05/2018. COMPARISON: 0607 hours 09/05/2018. REASON FOR STUDY: Line placement. FINDINGS: The cardiac silhouette is at the upper limits of normal in size. The aorta is atherosclerotic. The lungs are diminished in volume. Pulmonary markings are prominent and ill-defined. An ill-defined opacity is observed in the right lower lung. Support Devices: Endotracheal tube is about 6 cm above the shaji. Orogastric tube curls over the gastric bubble. Right subclavian catheter projects over the azygos arch. Right PICC projects about 3 cm below the shaji. Right thoracostomy tube remains at the apex. CONCLUSION(S): 1. Interstitial edema with no change. 2. Right basilar pneumonia, atelectasis or loculated effusion. 3. Support devices in position as delineated above. Report Dictated on Final Dictated: 09/05/2018 9:49 pm Dictating Physician: MD HINES B NELSON Signed Date and Time: 09/05/2018 9:53 pm Signed by: MD HINES B NELSON Transcribed Date and Time: 09/05/2018 9:49 POTASSIUM Collected: 09/05/2018 Status: F Source: [facility] 5:12 PM SYSTEM REPOSITORY TYPE CODE TESTS RESULT OUT OF REFERENCE UNITS RANGE LAB K3 3.5-5.1 mmol/L Low Potassium 3.4 Performed By: #### K3 #### [facility] [address] [place] [phone] CR CHEST 1 VIEW Observed: 09/05/2018 Status: F Source: [facility] 6:59 AM SYSTEM REPOSITORY Patient Name: JANET GUZMAN Diagnostic Radiology Exam Date/Time 09/05/2018 06:32:17 EDT Exam CR Chest 1 View Frontal Ordering Physician AUGUSTIN VILLATORO Accession Number [id number] CPT4 Codes 66880 () Reason For Exam ETT, CT placement Report Portable chest 09/05/2018: Clinical Information: Respiratory distress. Findings: A single AP portable view of the chest was obtained at 607 hours. Comparison was made to the prior study prior day. The various lines and tubes are unchanged. There is a tiny right apical pneumothorax. There could be an evolving infiltrate in the right lung base. There may be at most a mild degree of pulmonary vascular congestion. There could be an evolving infiltrate in the left lung base as well. Report Dictated on Workstation: [id number]-[id number] Final Dictated: 09/05/2018 6:59 am Dictating Physician: MD MÉNDEZ RISA Signed Date and Time: 09/05/2018 7:01 am Signed by: MD MÉNDEZ RISA Transcribed Date and Time: 09/05/2018 6:59 ARTERIAL BLOOD GASES Collected: 09/05/2018 Status: F Source: [facility] 6:55 AM SYSTEM REPOSITORY TYPE CODE TESTS RESULT OUT OF RANGE REFERENCE UNITS LAB HGBG ScreenOnly g/dL Hemoglobin 9.7 LAB PHG 7.350-7.450 NA High pH 7.501 LAB PCO2 35.0-45.0 mm[Hg] Low pCO2 31.2 LAB PO2 80.0-100.0 mm[Hg] High pO2 236.3 LAB HCO3 21.0-25.0 mmol/L HCO3 Normal 23.8 LAB TCO2 23.0-27.0 mmol/L TCO2 Normal 24.8 LAB SBE -3.0-3.0 mmol/L Std Base Normal Excess 1.1 LAB O2SAT 95.0-100.0 % O2 Normal Saturation 98.9 LAB FIO2 NA FIO2 No data Performed By: #### ABG #### [facility] [address] [place] [phone] HEMOGRAM W/ AUTODIFF Collected: 09/05/2018 Status: F Source: [facility] 2:57 AM SYSTEM REPOSITORY TYPE CODE TESTS RESULT OUT OF RANGE REFERENCE UNITS LAB IWBC 3.6-10.7 10*3/uL WBC Normal 10.6 LAB RBC 4.40-5.90 10*6/uL Low RBC 2.78 LAB HGB 13.0-18.0 g/dL Low Hemoglobin 9.1 LAB HCT 40.0-52.0 % Low Hematocrit 26.6 LAB MCV 80.0-98.0 fL MCV Normal 95.6 LAB MCH 26.0-34.0 pg MCH Normal 32.7 LAB MCHC 32.0-36.0 % MCHC Normal 34.2 LAB RDW 11.5-14.5 % RDW Normal 14.1 LAB PLT 140-440 10*3/uL Platelet Normal 214 LAB MPV 7.4-10.4 fL MPV Normal 9.0 Performed By: #### PATRICK BMP3, MG3, PER MDIFF #### [facility] [address] [place] [phone] BASIC METABOLIC PANEL Collected: 09/05/2018 Status: F Source: [facility] 2:57 AM SYSTEM REPOSITORY TYPE CODE TESTS RESULT OUT OF RANGE REFERENCE UNITS LAB NA3 137-145 mmol/L High Sodium 147 LAB K3 3.5-5.1 mmol/L Low Potassium 3.2 LAB CL3 98-107 mmol/L High Chloride 118 LAB CO23 22-30 mmol/L Carbon Normal Dioxide 27 LAB ANIN3 NA Anion Gap 3 LAB GLUC3 70-100 mg/dL High Glucose 149 LAB BUN3 7-20 mg/dL High Urea Nitrogen 28 LAB CRET3 0.52-1.25 mg/dL Normal Creatinine 0.94 LAB GF3BR >60 mL/min eGFR > 60.0 LAB GF3WR >60 mL/min eGFR OTHER > 60.0 Result Comment: Source- MDRD equation with creatinine calibration to IDMS(NKDEP) eGFR not recommended for drug dose adjustment LAB CA3 8.4-10.4 mg/dL Low Calcium 7.9 Performed By: #### HEMLEONILA, BMP3, MG3, PER, MDIFF #### [facility] [address] [place] [phone] MAGNESIUM Collected: 09/05/2018 Status: F Source: [facility] 2:57 AM SYSTEM REPOSITORY TYPE CODE TESTS RESULT OUT OF REFERENCE UNITS RANGE LAB MG3 1.6-2.3 mg/dL High Magnesium 2.8 Performed By: #### HEMDF, BMP3, MGNitesh, PER, MDIFF #### [facility] [address] [place] [phone] PHOSPHORUS Collected: 09/05/2018 Status: F Source: [facility] 2:57 AM SYSTEM REPOSITORY TYPE CODE TESTS RESULT OUT OF RANGE REFERENCE UNITS LAB PHOS3 2.5-4.5 mg/dL Normal Phosphorus 3.3 Performed By: #### KRYSTEN NGUYEN, MGPER Dowling, MDIFF #### [facility] [address] [place] [address] MANUAL DIFF Collected: 09/05/2018 Status: F Source: [facility] 2:57 AM SYSTEM REPOSITORY TYPE CODE TESTS RESULT OUT OF RANGE REFERENCE UNITS LAB NEUTR 40-80 % Normal Seg Neutrophils 48 LAB BANDS 0-3 % High Bands 27 LAB LYMPH 20-40 % Low Lymphocytes 9 LAB MONOC 2-10 % Normal Monocytes 7 LAB EO 1-6 % Normal Eosinophils 6 LAB BASO 0-2 % Normal Basophils 1 LAB META <1 % Metamyelocytes Abnormal 2 LAB ANCM 2.2-8.2 10*3/uL Normal Abs Neutrophile Cnt 8.0 LAB ALCM 1.1-4.5 10*3/uL Low Abs Lymph Cnt 1.0 LAB AMCM 0.2-1.1 10*3/uL Normal Abs Monocyte Cnt 0.7 LAB AECM 0.0-0.5 10*3/uL High Abs Eosin Cnt 0.6 LAB ABCM 0.0-0.2 10*3/uL Normal Abs Baso Cnt 0.1 LAB RBMOR NA RBC Morphology See Prev LAB LIMIT NA Cells counted 100 Performed By: #### KRYSTEN NGUYEN, MGNitesh, PER, MDIFF #### [facility] [address] [place] [address] CR CHEST PORTABLE Observed: 09/04/2018 Status: F Source: [facility] 7:55 PM SYSTEM REPOSITORY Patient Name: JANET GUZMAN Diagnostic Radiology Exam Date/Time 09/04/2018 18:49:18 EDT Exam CR Chest Portable Ordering Physician MD KASSANDRA, TRELL Lopez Accession Number [id number] CPT4 Codes 26449 () Reason For Exam Tube placement Report PORTABLE CHEST CLINICAL INDICATION: Endotracheal tube placement TECHNIQUE: Portable AP COMPARISON: 09/04/2018 FINDINGS: Endotracheal tube in place, with the tip terminating 5.3 cm from the shaji. Enteric tube passes below the diaphragm, tip excluded from [id number]. Right subclavian central venous catheter tip terminates over the peripheral SVC. Right sided apical chest tube in place with small right pneumothorax. Atelectasis versus scarring in the right lower lung zone with right. Small right pleural effusion. The cardiac silhouette is normal. Uncoiling of the thoracic aorta is noted. Displaced right lateral fourth through seventh rib fractures noted. IMPRESSION: 1. Lines and tubes as above. 2. Right apical chest tube in place with small right apical pneumothorax. 3. Small right pleural effusion with right basilar atelectasis. 3. Displaced right lateral fourth through seventh rib fractures. Report Dictated on Final Dictated: 09/04/2018 7:55 pm Dictating Physician: MD MG KEVIN Signed Date and Time: 09/04/2018 8:01 pm Signed by: MD MG KEVIN Transcribed Date and Time: 09/04/2018 7:55 OP NOTE Observed: 09/04/2018 Status: F Source: [facility] 5:44 PM SYSTEM REPOSITORY DATE OF OPERATION: 09/04/2018 PREOPERATIVE DIAGNOSIS: Deep venous thrombosis of left common femoral vein, Contraindication to anticoagulation POSTOPERATIVE DIAGNOSIS: Same SURGEON: Pierre Tapia M.D. ENDOSCOPY NURSE(S): Trell Powers M.D. ANESTHESIA: GETA OPERATION: Insertion of Cook Celect retrievable inferior vena cava filter ([id number]) ESTIMATED BLOOD LOSS: Minimal CONTRAST: 20 cc. COMPLICATIONS: None INDICATIONS: Traumatic brain injury, multiple trauma with deep venous thrombosis and contraindication to anticoagulation. DESCRIPTION OF OPERATION: The patient was identified and the procedure confirmed. The groin regions were prepped and draped in the usual sterile fashion. The right common femoral vein was percutaneously entered and a wire was advanced into the inferior vena cava under fluoroscopic guidance. The dilator was passed over the wire followed by the introducer, which was advanced into the inferior vena cava. A sheath injection of contrast demonstrated a patent normal caliber inferior vena cava and the level of the renal veins was identified by dilution in the vena cava. The filter (Cook Celect) was advanced through the introducer then positioned and deployed at the level of the L2 vertebra in an infrarenal position. The filter deployed properly. The introducer was removed and pressure was held for hemostasis. A sterile bandage was applied to the puncture site in the operating room. The patient tolerated the procedure and was transferred to the ICU in satisfactory condition. PIERRE TAPIA MD RF IVC FILTER PLACEMENT Observed: 09/04/2018 Status: F Source: [facility] PERCUTANEOUS 5:42 PM SYSTEM REPOSITORY Patient Name: JANET GUZMAN Fluoroscopy Exam Date/Time 09/04/2018 17:42:53 EDT Exam RF IVC Filter Placement Percutaneous Ordering Physician PIERRE TAPIA Accession Number [id number] CTP4 Codes 24674 () Reason For Exam Acute deep vein thrombosis (DVT) of femoral vein of left lower extremity Report A total of 1 minute and 1 second of fluoro time was used in the Operating Suite for this procedure. No other report will be generated. Final Signed Date and Time: 09/19/2018 10:41 am Signed by: OVEN DUMPER, SYSTEM Transcribed Date and Time: 09/12/2018 12:16 Transcribed By:PRIMO BASIC METABOLIC PANEL Collected: 09/04/2018 Status: F Source: [facility] 4:57 PM SYSTEM REPOSITORY TYPE CODE TESTS RESULT OUT OF RANGE REFERENCE UNITS LAB NA3 137-145 mmol/L Sodium Normal 145 LAB K3 3.5-5.1 mmol/L Low Potassium 3.3 LAB CL3 98-107 mmol/L High Chloride 118 LAB CO23 22-30 mmol/L Carbon Normal Dioxide 25 LAB ANIN3 NA Anion Gap 2 LAB GLUC3 70-100 mg/dL High Glucose 102 LAB BUN3 7-20 mg/dL High Urea Nitrogen 23 LAB CRET3 0.52-1.25 mg/dL Normal Creatinine 0.79 LAB GF3BR >60 mL/min eGFR > 60.0 LAB GF3WR >60 mL/min eGFR OTHER > 60.0 Result Comment: Source- MDRD equation with creatinine calibration to IDMS(NKDEP) eGFR not recommended for drug dose adjustment LAB CA3 8.4-10.4 mg/dL Low Calcium 7.7 Performed By: #### BMP3 #### [facility] [address] [place] [address] CR ABDOMEN AP Observed: 09/04/2018 Status: F Source: [facility] 12:49 PM SYSTEM REPOSITORY Patient Name: JANET GUZMAN Diagnostic Radiology Exam Date/Time 09/04/2018 12:38:36 EDT Exam CR Abdomen AP Ordering Physician MD KASSANDRA, TRELL Lopez Accession Number [id number] CPT4 Codes 92466 () Reason For Exam distension Report EXAM TYPE: CR Abdomen AP EXAM DATE AND TIME: 09/04/2018 12:38 PM EDT INDICATION: 63 years Male with bowel distention COMPARISON: CT dated 08/28/2018 TECHNIQUE: AP supine radiograph of the abdomen and pelvis was obtained. FINDINGS: Enteric tube terminates overlying the gastric antrum. No dilated loops of small or large bowel are seen. Limited evaluation for free air or air-fluid levels on supine-only imaging. No abnormal soft tissue calcifications are seen. The visualized osseous structures are unremarkable. Partly visualized right basilar infiltrate IMPRESSION: No dilated bowel loops. An enteric tube is seen. Report Dictated on Final Dictated: 09/04/2018 12:49 pm Dictating Physician: MD TAM NICHOLAS Signed Date and Time: 09/04/2018 12:52 pm Signed by: MD TAM NICHOLAS Transcribed Date and Time: 09/04/2018 12:49 Observed: 09/04/2018 Status: F Source: [facility] CULT./ST. RESPIRATORY 12:38 PM SYSTEM REPOSITORY Order Comment: Specimen Source Comment:Tracheal Aspirate CULT./ST. RESPIRATORY --> Status: F Few normal respiratory devon. STAIN GRAM --> Status: F Many polymorphonuclear cells/lpf. Rare gram positive cocci in pairs and chains. Rare gram positive cocci in pairs and chains. Performed By: #### CS/RE #### [facility] [address] [phone] Observed: 09/04/2018 Status: F Source: [facility] CULTURE URINE 12:33 PM SYSTEM REPOSITORY Order Comment: Specimen Source Comment:Urine, clean catch CULTURE URINE --> Status: F No growth (<1,000 CFU/ml). Performed By: #### C/UR #### [facility] [address] [place] [address] Observed: 09/04/2018 Status: F Source: [facility] CULTURE BLOOD (TWO) 12:05 PM SYSTEM REPOSITORY Order Comment: Specimen Source Comment:Blood CULTURE BLOOD (Two) --> Status: F No growth at 5 days. Performed By: #### C/BLT #### [facility] [address] [place] [address] Observed: 09/04/2018 Status: F Source: [facility] CULTURE BLOOD 12:00 PM SYSTEM REPOSITORY Order Comment: Specimen Source Comment:Blood CULTURE BLOOD --> Status: F No growth at 5 days. Performed By: #### C/BLD #### [facility] [address] ARTERIAL BLOOD GASES Collected: 09/04/2018 Status: F Source: [facility] 10:23 AM SYSTEM REPOSITORY TYPE CODE TESTS RESULT OUT OF RANGE REFERENCE UNITS LAB HGBG ScreenOnly g/dL Hemoglobin 11.1 LAB PHG 7.350-7.450 NA High pH 7.466 LAB PCO2 35.0-45.0 mm[Hg] Low pCO2 33.3 LAB PO2 80.0-100.0 mm[Hg] Low pO2 71.4 LAB HCO3 21.0-25.0 mmol/L HCO3 Normal 23.5 LAB TCO2 23.0-27.0 mmol/L TCO2 Normal 24.5 LAB SBE -3.0-3.0 mmol/L Std Base Normal Excess 0.2 LAB O2SAT 95.0-100.0 % Low O2 Saturation 93.5 LAB FIO2 NA FIO2 No data Performed By: #### ABG #### [facility] [address] VL VENOUS DUPLEX US Observed: 09/04/2018 Status: F Source: [facility] UPPER EXT BILATERAL 9:18 AM SYSTEM REPOSITORY Patient Name: JANET GUZMAN Ultrasound Exam Date/Time 09/04/2018 11:37:15 EDT Exam VL Venous Duplex US Upper Ext Bilateral Ordering Physician MD BREWER MODUPEOLA Accession Number [id number] CPT4 Codes 62968 () Reason For Exam b/l UE edema Report [facility] --- Bilateral Upper Extremity Venous Duplex Report Patient Name: Janet Guzman : 1955 Study 09/04/2018 (63yrs) Date: Age: 63 Account: [id number] Gender: M Loc: T219 BP: Ordering: Alba Brewer Technologist: Ordering Physician: Alba Brewer Resident Care Associate: Pedro Rosenberg RVT [facility] Interpreting Physician: Pierre Tapia MD --- Location: [facility] --- INDICATIONS: Edema. edema throughout bilatera upper extremities. --- CRITICAL FINDINGS Technical findings were reported to nurse vargas , by cande rosenberg , on 09/04/2018 , at 11:42 AM. Correct read-back was verified. --- CONCLUSIONS 1. Findings show superficial vein thrombosis involving the left arm in the veins noted below. --- IMPRESSIONS: - Study shows acute superficial vein thrombosis of the left cephalic vein and left basilic vein. - The superficial and deep systems of the right upper extremity appear to be free of thrombus. - These findings are negative for deep vein thrombosis in the left upper extremity. - Findings show superficial vein thrombosis involving the left arm in the veins noted below. --- STUDY DATA: Bilateral upper extremity venous duplex. Birthdate: Patient birthdate: 1955. Age: Patient is 63 yr old. Sex: Gender: male. Ethnicity: Ethnicity: white. Doppler flow study including spectral analysis, color and finch scale imaging. Patient status: Inpatient. Procedure: A vascular evaluation was performed. The images were obtained using a gumi E9 vascular ultrasound machine. The study was technically limited due to edema, immobility, and surgical dressings. --- VENOUS FLOW AND IMAGING: + + + + --+ !Location !Thrombosis!Flow properties !Comments ! + + + + --+ !Right internal ! !Normal phasicity; ! --! !jugular ! !spontaneous; normal ! ! ! ! !augmentation; ! ! ! ! !compressible ! ! + + + + --+ !Right innominate ! !Spontaneous; normal ! --! ! ! !augmentation ! ! + + + + --+ !Right subclavian ! !Normal phasicity; ! --! ! ! !spontaneous; normal ! ! ! ! !augmentation; ! ! ! ! !compressible ! ! + + + + --+ !Right axillary ! !Normal phasicity; !unable to obtain a ! ! ! !spontaneous; normal !compression due to ! ! ! !augmentation !bandages and lines ! ! ! ! !in the area. ! + + + + --+ !Right brachial ! !Normal phasicity; ! --! ! ! !spontaneous; normal ! ! ! ! !augmentation; ! ! ! ! !compressible ! ! + + + + --+ !Right radial ! !Compressible ! --! + + + + --+ !Right ulnar ! !Compressible ! --! + + + + --+ !Right basilic ! !Compressible ! --! + + + + --+ !Right cephalic ! !Compressible ! --! + + + + --+ !Left internal ! !Normal phasicity; ! --! !jugular ! !spontaneous; normal ! ! ! ! !augmentation; ! ! ! ! !compressible ! ! + + + + --+ !Left innominate ! !Spontaneous; normal ! --! ! ! !augmentation ! ! + + + + --+ !Left subclavian ! !Normal phasicity; ! --! ! ! !spontaneous; normal ! ! ! ! !augmentation; ! ! ! ! !compressible ! ! + + + + --+ !Left axillary ! !Normal phasicity; ! --! ! ! !spontaneous; normal ! ! ! ! !augmentation; ! ! ! ! !compressible ! ! + + + + --+ !Left brachial ! !Normal phasicity; ! --! ! ! !spontaneous; normal ! ! ! ! !augmentation; ! ! ! ! !compressible ! ! + + + + --+ !Left radial ! !Compressible ! --! + + + + --+ !Left ulnar ! !Compressible ! --! + + + + --+ !Left basilic !Acute !Noncompressible ! --! + + + + --+ !Left cephalic !Acute !Noncompressible ! --! + + + + --+ Electronically signed by: Pierre Tapia MD [id number] Final Dictated: 09/04/2018 1:32 pm Dictating Physician: PIERRE TAPIA Signed Date and Time: 09/04/2018 1:32 pm Signed by: PIERRE TAPIA VL VENOUS DUPLEX US Observed: 09/04/2018 Status: F Source: [facility] 8:45 AM SYSTEM REPOSITORY Patient Name: JANET GUZMAN Ultrasound Exam Date/Time 09/04/2018 11:37:05 EDT Exam VL Venous Duplex US Lower Ext Bilateral Ordering Physician MD BREWER MODUPEOLA Accession Number [id number] CPT4 Codes 92071 () Reason For Exam b/l LE swelling Report [facility] --- Lower Extremity Venous Duplex Report Patient Name: Janet Guzman : 1955 Study 09/04/2018 (63yrs) Date: Age: 63 Account: [id number] Gender: M Loc: T219 BP: Ordering: Alba Brewer Technologist: Ordering Physician: Alba Brewer Resident Care Associate: Pedro Rosenberg RVT, [facility] Interpreting Physician: Pierre Tapia MD --- Location: [facility] --- INDICATIONS: Swelling of limb. bilateral calf swelling. --- CRITICAL FINDINGS Technical findings were reported to nurse vargas , by cande rosenberg , on 09/04/2018 , at 11:45 AM. Correct read-back was verified. --- CONCLUSIONS 1. Study shows acute deep vein thrombosis of the left common femoral vein. --- IMPRESSIONS: - Study shows acute deep vein thrombosis of the left common femoral vein. - The superficial and deep systems of the right lower extremity appear to be free of thrombus. - These findings are negative for deep vein thrombosis in the right lower extremity. - These findings are negative for superficial vein thrombosis in the bilateral lower extremities. --- STUDY DATA: Complete lower extremity venous duplex evaluation. Birthdate: Patient birthdate: 1955. Age: Patient is 63 yr old. Sex: Gender: male. Ethnicity: Ethnicity: white. Doppler flow study including spectral analysis, color and finch scale imaging. Patient status: Inpatient. Procedure: A vascular evaluation was performed. The images were obtained using a gumi E9 vascular ultrasound machine. The study was technically limited due to body habitus, edema, and immobility. --- VENOUS FLOW AND IMAGING: + +-------+ + --+ !Location !Overall!Thrombosis!Flow properties ! + +-------+ + --+ !Right common femoral !Patent ! !Normal phasicity; spontaneous;! ! ! ! !normal augmentation; ! ! ! ! !compressible ! + +-------+ + --+ !Right saphenofemoral !Patent ! !Compressible ! !junction ! ! ! ! + +-------+ + --+ !Right profunda femoral !Patent ! ! --! + +-------+ + --+ !R femoral proximal !Patent ! !Compressible ! + +-------+ + --+ !R femoral mid !Patent ! !Normal phasicity; spontaneous;! ! ! ! !normal augmentation; ! ! ! ! !compressible ! + +-------+ + --+ !R femoral distal !Patent ! !Compressible ! + +-------+ + --+ !Right popliteal !Patent ! !Normal phasicity; spontaneous;! ! ! ! !normal augmentation; ! ! ! ! !compressible ! + +-------+ + --+ !Right gastrocnemius !Patent ! !Compressible ! + +-------+ + --+ !Right posterior tibial !Patent ! !Compressible ! + +-------+ + --+ !Right peroneal !Patent ! !Compressible ! + +-------+ + --+ !Right soleal !Patent ! !Compressible ! + +-------+ + --+ !Right greater saphenous !Patent ! !Compressible ! + +-------+ + --+ !Left common femoral !-------!Acute !Partially compressible ! + +-------+ + --+ !Left saphenofemoral !Patent ! !Compressible ! !junction ! ! ! ! + +-------+ + --+ !Left profunda femoral !Patent ! ! --! + +-------+ + --+ !L femoral proximal !Patent ! !Compressible ! + +-------+ + --+ !L femoral mid !Patent ! !Normal phasicity; spontaneous;! ! ! ! !normal augmentation; ! ! ! ! !compressible ! + +-------+ + --+ !L femoral distal !Patent ! !Compressible ! + +-------+ + --+ !Left popliteal !Patent ! !Normal phasicity; spontaneous;! ! ! ! !normal augmentation; ! ! ! ! !compressible ! + +-------+ + --+ !Left gastrocnemius !Patent ! !Compressible ! + +-------+ + --+ !Left posterior tibial !Patent ! !Compressible ! + +-------+ + --+ !Left peroneal !Patent ! !Compressible ! + +-------+ + --+ !Left soleal !Patent ! !Compressible ! + +-------+ + --+ !Left greater saphenous !Patent ! !Compressible ! + +-------+ + --+ Electronically signed by: Pierre Tapia MD [id number] Final Dictated: 09/04/2018 1:20 pm Dictating Physician: PIERRE TAPIA Signed Date and Time: 09/04/2018 1:19 pm Signed by: PIERRE TAPIA CR CHEST 1 VIEW Observed: 09/04/2018 Status: F Source: [facility] 7:00 AM SYSTEM REPOSITORY Patient Name: JANET GUZMAN Diagnostic Radiology Exam Date/Time 09/04/2018 06:49:42 EDT Exam CR Chest 1 View Frontal Ordering Physician MADELEINEAUGUSTIN DRAKE Accession Number [id number] CPT4 Codes 63512 () Reason For Exam ETT, CT placement Report PORTABLE CHEST Clinical indication: ETT, CT placement Comparison: 09/03/2018. Right chest tube, right subclavian catheter, endotracheal tube and oral gastric tube appear unchanged. The cardiac silhouette and mediastinal contours are unchanged in size. Infiltrate and pleural fluid on the right are similar to the prior study. There is mild atelectasis at the left lung base. IMPRESSION: Right infiltrate and pleural fluid are unchanged Minimal left basilar atelectasis Report Dictated on Workstation: [id number] Final Dictated: 09/04/2018 7:00 am Dictating Physician: MD CLEARY DIANE Signed Date and Time: 09/04/2018 7:01 am Signed by: MD CLEARY DIANE Transcribed Date and Time: 09/04/2018 7:00 HEMOGRAM W/ AUTODIFF Collected: 09/04/2018 Status: F Source: [facility] 4:35 AM SYSTEM REPOSITORY TYPE CODE TESTS RESULT OUT OF RANGE REFERENCE UNITS LAB IWBC 3.6-10.7 10*3/uL High WBC 10.9 LAB RBC 4.40-5.90 10*6/uL Low RBC 3.04 LAB HGB 13.0-18.0 g/dL Low Hemoglobin 10.0 LAB HCT 40.0-52.0 % Low Hematocrit 29.3 LAB MCV 80.0-98.0 fL MCV Normal 96.2 LAB MCH 26.0-34.0 pg MCH Normal 32.9 LAB MCHC 32.0-36.0 % MCHC Normal 34.2 LAB RDW 11.5-14.5 % RDW Normal 14.3 LAB PLT 140-440 10*3/uL Platelet Normal 228 LAB MPV 7.4-10.4 fL MPV Normal 9.7 Performed By: #### HEMDF, BMP3, MG3, PHOS3, MDIFF #### [facility] [address] [place] [phone] BASIC METABOLIC PANEL Collected: 09/04/2018 Status: F Source: [facility] 4:35 AM SYSTEM REPOSITORY TYPE CODE TESTS RESULT OUT OF RANGE REFERENCE UNITS LAB NA3 137-145 mmol/L Sodium Normal 145 LAB K3 3.5-5.1 mmol/L Low Potassium 3.2 LAB CL3 98-107 mmol/L High Chloride 117 LAB CO23 22-30 mmol/L Carbon Normal Dioxide 25 LAB ANIN3 NA Anion Gap 3 LAB GLUC3 70-100 mg/dL High Glucose 150 LAB BUN3 7-20 mg/dL High Urea Nitrogen 23 LAB CRET3 0.52-1.25 mg/dL Normal Creatinine 0.87 LAB GF3BR >60 mL/min eGFR > 60.0 LAB GF3WR >60 mL/min eGFR OTHER > 60.0 Result Comment: Source- MDRD equation with creatinine calibration to IDMS(NKDEP) eGFR not recommended for drug dose adjustment LAB CA3 8.4-10.4 mg/dL Low Calcium 8.1 Performed By: #### HEMDF, BMP3, MG3, PHOS3, MDIFF #### [facility] [address] [place] [address] MAGNESIUM Collected: 09/04/2018 Status: F Source: [facility] 4:35 AM SYSTEM REPOSITORY TYPE CODE TESTS RESULT OUT OF REFERENCE UNITS RANGE LAB MG3 1.6-2.3 mg/dL High Magnesium 2.6 Performed By: #### HEMDF, BMP3, MG3, PHOS3, MDIFF #### [facility] [address] [place] [phone] PHOSPHORUS Collected: 09/04/2018 Status: F Source: [facility] 4:35 AM SYSTEM REPOSITORY TYPE CODE TESTS RESULT OUT OF RANGE REFERENCE UNITS LAB PHOS3 2.5-4.5 mg/dL Normal Phosphorus 2.9 Performed By: #### HEMDF, BMP3, MG3, PHOS3, MDIFF #### [facility] [address] [place] [phone] MANUAL DIFF Collected: 09/04/2018 Status: F Source: [facility] 4:35 AM SYSTEM REPOSITORY TYPE CODE TESTS RESULT OUT OF REFERENCE UNITS RANGE LAB NEUTR 40-80 % Seg Normal Neutrophils 76 LAB BANDS 0-3 % Bands Normal 2 LAB LYMPH 20-40 % Low Lymphocytes 4 LAB MONOC 2-10 % Monocytes High 15 LAB EO 1-6 % Eosinophils Normal 1 LAB BASO 0-2 % Basophils Normal 2 LAB ANCM 2.2-8.2 10*3/uL Abs High Neutrophile Cnt 8.5 LAB ALCM 1.1-4.5 10*3/uL Low Abs Lymph Cnt 0.4 LAB AMCM 0.2-1.1 10*3/uL Abs High Monocyte Cnt 1.6 LAB AECM 0.0-0.5 10*3/uL Abs Eosin Normal Cnt 0.1 LAB ABCM 0.0-0.2 10*3/uL Abs Baso Normal Cnt 0.2 LAB RBMOR NA RBC Morphology ABNORMAL LAB ANISO NA Anisocytosis Slight LAB MACRO NA Macrocytosis Slight LAB HYPOC NA Hypochromia Slight LAB STOMA NA Stomatocytes Slight LAB LIMIT NA Cells counted 100 Performed By: #### HEMDF, BMP3, MG3, PHOS3, MDIFF #### [facility] [address] [place] [phone] ARTERIAL BLOOD GASES Collected: 09/04/2018 Status: F Source: [facility] 4:35 AM SYSTEM REPOSITORY TYPE CODE TESTS RESULT OUT OF RANGE REFERENCE UNITS LAB HGBG ScreenOnly g/dL Hemoglobin 10.0 LAB PHG 7.350-7.450 NA High pH 7.485 LAB PCO2 35.0-45.0 mm[Hg] Low pCO2 30.5 LAB PO2 80.0-100.0 mm[Hg] High pO2 101.3 LAB HCO3 21.0-25.0 mmol/L HCO3 Normal 22.5 LAB TCO2 23.0-27.0 mmol/L TCO2 Normal 23.4 LAB SBE -3.0-3.0 mmol/L Std Base Normal Excess -0.4 LAB O2SAT 95.0-100.0 % O2 Normal Saturation 97.6 LAB FIO2 NA FIO2 No data Performed By: #### ABG #### [facility] [address] [phone] CR CHEST 1 VIEW Observed: 09/03/2018 Status: F Source: [facility] 6:59 AM SYSTEM REPOSITORY Patient Name: JANET GUZMAN Diagnostic Radiology Exam Date/Time 09/03/2018 06:39:12 EDT Exam CR Chest 1 View Frontal Ordering Physician AUGUSTIN VILLATORO Accession Number [id number] CPT4 Codes 16243 () Reason For Exam ETT, CT placement Report Portable chest 09/03/2018: Clinical Information: Respiratory failure. Findings: A single AP portable view of the chest was obtained at 601 hours. Comparison was made to the prior study prior day. The endotracheal tube is unchanged with the tip just below the level of the aortic knob. The nasogastric tube is unchanged with the tip beyond the inferior margin of the image but below the diaphragm. A right-sided chest tube is present. No pneumothorax is seen. The right subclavian line is unchanged. There is bilateral basilar atelectasis. The pulmonary vasculature is mildly congested. No overt pulmonary edema or consolidation is identified. Report Dictated on Workstation: [id number] Final Dictated: 09/03/2018 6:59 am Dictating Physician: MD MÉNDEZ RISA Signed Date and Time: 09/03/2018 7:00 am Signed by: MD MÉNDEZ RISA Transcribed Date and Time: 09/03/2018 6:59 HEMOGRAM W/ AUTODIFF Collected: 09/03/2018 Status: F Source: [facility] 2:16 AM SYSTEM REPOSITORY TYPE CODE TESTS RESULT OUT OF RANGE REFERENCE UNITS LAB IWBC 3.6-10.7 10*3/uL WBC Normal 9.0 LAB RBC 4.40-5.90 10*6/uL Low RBC 2.94 LAB HGB 13.0-18.0 g/dL Low Hemoglobin 9.7 LAB HCT 40.0-52.0 % Low Hematocrit 28.2 LAB MCV 80.0-98.0 fL MCV Normal 96.0 LAB MCH 26.0-34.0 pg MCH Normal 33.1 LAB MCHC 32.0-36.0 % MCHC Normal 34.5 LAB RDW 11.5-14.5 % RDW Normal 14.1 LAB PLT 140-440 10*3/uL Platelet Normal 174 LAB MPV 7.4-10.4 fL MPV Normal 9.7 Performed By: #### HEMDF, BMP3, MG3, PHOS3, MDIFF #### [facility] [address] [place] [phone] BASIC METABOLIC PANEL Collected: 09/03/2018 Status: F Source: [facility] 2:16 AM SYSTEM REPOSITORY TYPE CODE TESTS RESULT OUT OF RANGE REFERENCE UNITS LAB NA3 137-145 mmol/L Sodium Normal 143 LAB K3 3.5-5.1 mmol/L Normal Potassium 3.5 LAB CL3 98-107 mmol/L High Chloride 118 LAB CO23 22-30 mmol/L Carbon Normal Dioxide 24 LAB ANIN3 NA Anion Gap 1 LAB GLUC3 70-100 mg/dL High Glucose 115 LAB BUN3 7-20 mg/dL Urea Normal Nitrogen 17 LAB CRET3 0.52-1.25 mg/dL Normal Creatinine 0.91 LAB GF3BR >60 mL/min eGFR > 60.0 LAB GF3WR >60 mL/min eGFR OTHER > 60.0 Result Comment: Source- MDRD equation with creatinine calibration to IDMS(NKDEP) eGFR not recommended for drug dose adjustment LAB CA3 8.4-10.4 mg/dL Low Calcium 8.3 Performed By: #### HEMDF, BMP3, MG3, PHOS3, MDIFF #### [facility] [address] [place] [address] MAGNESIUM Collected: 09/03/2018 Status: F Source: [facility] 2:16 AM SYSTEM REPOSITORY TYPE CODE TESTS RESULT OUT OF REFERENCE UNITS RANGE LAB MG3 1.6-2.3 mg/dL High Magnesium 2.4 Performed By: #### HEMDF, BMP3, MG3, PHOS3, MDIFF #### [facility] [address] [place] [address] PHOSPHORUS Collected: 09/03/2018 Status: F Source: [facility] 2:16 AM SYSTEM REPOSITORY TYPE CODE TESTS RESULT OUT OF RANGE REFERENCE UNITS LAB PHOS3 2.5-4.5 mg/dL Normal Phosphorus 3.0 Performed By: #### HEMDF, BMP3, MG3, PHOS3, MDIFF #### [facility] [address] [place] [phone] MANUAL DIFF Collected: 09/03/2018 Status: F Source: [facility] 2:16 AM SYSTEM REPOSITORY TYPE CODE TESTS RESULT OUT OF RANGE REFERENCE UNITS LAB NEUTR 40-80 % Seg Neutrophils Normal 64 LAB BANDS 0-3 % High Bands 19 LAB LYMPH 20-40 % Low Lymphocytes 5 LAB MONOC 2-10 % Monocytes Normal 8 LAB EO 1-6 % Eosinophils Normal 1 LAB BASO 0-2 % Basophils Normal 2 LAB META <1 % Metamyelocytes Abnormal 1 LAB ANCM 2.2-8.2 10*3/uL Abs Neutrophile Normal Cnt 7.5 LAB ALCM 1.1-4.5 10*3/uL Low Abs Lymph Cnt 0.4 LAB AMCM 0.2-1.1 10*3/uL Abs Monocyte Cnt Normal 0.7 LAB AECM 0.0-0.5 10*3/uL Abs Eosin Cnt Normal 0.1 LAB ABCM 0.0-0.2 10*3/uL Abs Baso Cnt Normal 0.2 LAB RBMOR NA RBC Morphology ABNORMAL LAB ANISO NA Anisocytosis Slight LAB MACRO NA Macrocytosis Slight LAB POLYC NA Polychromasia Slight LAB BSTIP NA Basophillic Stippling Slight LAB DOHLE NA Dohle Bodies Slight LAB LIMIT NA Cells counted 100 Performed By: #### HEMDF, BMP3, MG3, PHOS3, MDIFF #### [facility] [address] [place] [phone] ARTERIAL BLOOD GASES Collected: 09/03/2018 Status: F Source: [facility] 2:16 AM SYSTEM REPOSITORY TYPE CODE TESTS RESULT OUT OF RANGE REFERENCE UNITS LAB HGBG ScreenOnly g/dL Hemoglobin 10.5 LAB PHG 7.350-7.450 NA High pH 7.457 LAB PCO2 35.0-45.0 mm[Hg] Low pCO2 32.7 LAB PO2 80.0-100.0 mm[Hg] pO2 Normal 80.4 LAB HCO3 21.0-25.0 mmol/L HCO3 Normal 22.6 LAB TCO2 23.0-27.0 mmol/L TCO2 Normal 23.6 LAB SBE -3.0-3.0 mmol/L Std Base Normal Excess -0.8 LAB O2SAT 95.0-100.0 % O2 Normal Saturation 95.5 LAB FIO2 NA FIO2 No data Performed By: #### ABG #### [facility] [address] [place] [phone] MRI BRAIN W/ + W/O Observed: 09/02/2018 Status: F Source: [facility] CONTRAST 4:43 PM SYSTEM REPOSITORY Patient Name: JANET GUZMAN MRI Exam Date/Time 09/02/2018 12:11:24 EDT Exam MRI Brain w/ + w/o Contrast Ordering Physician MD KASSANDRA, TRELL Lopez Accession Number [id number] CPT4 Codes 35418 () Reason For Exam HEAD TRAUMA, CLOSED, MOD-SEVERE Report Examination: MRI brain with and without contrast Clinical Indication: Head trauma, moderate to severe Comparison: CT 08/30/2018 Findings: Multiplanar multisequence MRI was obtained through the skull prior to and after administration of 20 mL Multihance intravenous gadolinium contrast. Sequences included diffusion-weighted, gradient and FLAIR images. There is a T2 hyperintense subgaleal fluid collection, hematoma seen along the frontal scalp measuring up to 10 cm anterior to posterior and up to 1.0 cm in depth. There is some fluid within the ethmoid and maxillary sinuses. There are multiple intracranial hemorrhages. There is intraparenchymal hematoma left frontal, bilateral temporal lobes. There is subdural hematoma seen along the left tentorium cerebelli the and adjacent to the occipital lobe. There is a mild amount of subarachnoid hemorrhage along the frontal lobes left greater than right and extending to the convexity, left temporal and left parietal lobes. There are small punctate hemorrhages seen along the finch-white junction along the frontal convexity likely shearing injuries. There is cerebral edema seen along the left frontal and bilateral temporal lobes. There is no evidence of midline shift or gross herniation. There are multiple fluid-filled right mastoid air cells which could be posttraumatic. Mild left-sided mastoid inflammation. There are multiple areas of gadolinium contrast enhancement with dural thickening and enhancement and some parenchymal enhancement along the left frontal and bilateral temporal lobes. Findings thought to be posttraumatic. Impression: 1. Multiple areas of intracranial hemorrhage with parenchymal contusions left frontal and bilateral temporal lobes. Multiple areas of subarachnoid hemorrhage and suggestion of some slight shearing hemorrhages at the anterior frontal finch-white junction. Focal cerebral edema left frontal and bilateral temporal lobes. No evidence of midline shift or herniation. Findings similar to CT scanning given differences in modality. 2. Left superior orbital rim fracture better seen on comparison CT. 3. Fluid-filled right mastoid air cells related to trauma/fracture. 4. Large right frontal subgaleal hematoma. Report Dictated on Final Dictated: 09/02/2018 4:43 pm Dictating Physician: MD LIZAMA ANTHONY J Signed Date and Time: 09/02/2018 4:52 pm Signed by: MD LIZAMA ANTHONY J Transcribed Date and Time: 09/02/2018 4:43 CR CHEST 1 VIEW Observed: 09/02/2018 Status: F [facility] Patient Name: JANET GUZMAN Diagnostic Radiology Exam Date/Time 09/02/2018 06:23:03 EDT Exam CR Chest 1 View Frontal Ordering Physician AUGUSTIN VILLATORO Accession Number [id number] CPT4 Codes 19191 () Reason For Exam ETT, CT placement Report PORTABLE CHEST: INDICATION: Respiratory failure COMPARISON: 09/01/2018 Obtained at 0546 hours. A single portable AP radiograph of the chest was obtained. The heart is borderline in size. The mediastinal silhouette is normal. There is pulmonary vascular congestion with bibasal atelectasis. Infiltrative changes are seen involving the right mid to lower lung field. There are no effusions. There is no pleural thickening. Arthritic changes of the spine and shoulders are present. Fractures of at least the right 5th and 6th ribs are noted. The ET tube and NG tube are unchanged. A right subclavian central venous catheter is present with the tip overlying the superior vena cava. A right- sided chest tube is present. There is no pneumothorax. IMPRESSION: Pulmonary congestion with bibasal atelectasis and a right mid to lower lung field infiltrate. Report Dictated on Final Dictated: 09/02/2018 10:01 am Dictating Physician: DO SANDERS ALFRED Signed Date and Time: 09/02/2018 10:04 am Signed by: DO SANDERS ALFRED Transcribed Date and Time: 09/02/2018 10:01 ARTERIAL BLOOD GASES Collected: 09/02/2018 Status: F [facility] SYSTEM REPOSITORY TYPE CODE TESTS RESULT OUT OF RANGE REFERENCE UNITS LAB HGBG ScreenOnly g/dL Hemoglobin 9.9 LAB PHG 7.350-7.450 NA pH Normal 7.435 LAB PCO2 35.0-45.0 mm[Hg] Low pCO2 31.7 LAB PO2 80.0-100.0 mm[Hg] pO2 Normal 85.6 LAB HCO3 21.0-25.0 mmol/L Low HCO3 20.8 LAB TCO2 23.0-27.0 mmol/L Low TCO2 21.8 LAB SBE -3.0-3.0 mmol/L Std Base Normal Excess -2.8 LAB O2SAT 95.0-100.0 % O2 Normal Saturation 96.6 LAB FIO2 NA FIO2 No data Performed By: #### ABG #### [facility] [address] [place] [phone] BASIC METABOLIC PANEL Collected: 09/02/2018 Status: F Source: [facility] 1:39 AM SYSTEM REPOSITORY TYPE CODE TESTS RESULT OUT OF RANGE REFERENCE UNITS LAB NA3 137-145 mmol/L Sodium Normal 145 LAB K3 3.5-5.1 mmol/L Low Potassium 3.2 LAB CL3 98-107 mmol/L High Chloride 120 LAB CO23 22-30 mmol/L Carbon Normal Dioxide 24 LAB ANIN3 NA Anion Gap 1 LAB GLUC3 70-100 mg/dL High Glucose 121 LAB BUN3 7-20 mg/dL Urea Normal Nitrogen 17 LAB CRET3 0.52-1.25 mg/dL Normal Creatinine 1.02 LAB GF3BR >60 mL/min eGFR > 60.0 LAB GF3WR >60 mL/min eGFR OTHER > 60.0 Result Comment: Source- MDRD equation with creatinine calibration to IDMS(NKDEP) eGFR not recommended for drug dose adjustment LAB CA3 8.4-10.4 mg/dL Low Calcium 8.2 Performed By: #### BMP3, MG3, PHOS3, VANCT HEMLEONILA MDIFF #### [facility] [address] [place] [phone] MAGNESIUM Collected: 09/02/2018 Status: F Source: [facility] 1:39 AM SYSTEM REPOSITORY TYPE CODE TESTS RESULT OUT OF RANGE REFERENCE UNITS LAB MG3 1.6-2.3 mg/dL Normal Magnesium 2.0 Performed By: #### BMP3, MG3, PHOS3, VANCT HEMLEONILA, MDIFF #### [facility] [address] [place] [phone] PHOSPHORUS Collected: 09/02/2018 Status: F Source: [facility] 1:39 AM SYSTEM REPOSITORY TYPE CODE TESTS RESULT OUT OF REFERENCE UNITS RANGE LAB PHOS3 2.5-4.5 mg/dL Low Phosphorus 1.8 Performed By: #### BMP3, MG3, PHOS3, VANCTPATRICK MDIFF #### [facility] [employer] [address] [address] VANCOMYCIN TROUGH Collected: 09/02/2018 Status: F Source: [facility] 1:39 AM SYSTEM REPOSITORY TYPE CODE TESTS RESULT OUT OF REFERENCE UNITS RANGE LAB VNCT 15.0-20.0 ug/mL Low Vancomycin 14.3 Trough Result Comment: . Performed By: #### BMP3, MG3, PHOS3, VANCT, PATRICK, MDIFF #### [facility] [employer] [address] [address] HEMOGRAM W/ AUTODIFF Collected: 09/02/2018 Status: F Source: [facility] 1:39 AM SYSTEM REPOSITORY TYPE CODE TESTS RESULT OUT OF RANGE REFERENCE UNITS LAB IWBC 3.6-10.7 10*3/uL WBC Normal 5.8 LAB RBC 4.40-5.90 10*6/uL Low RBC 2.91 LAB HGB 13.0-18.0 g/dL Low Hemoglobin 9.6 LAB HCT 40.0-52.0 % Low Hematocrit 28.2 LAB MCV 80.0-98.0 fL MCV Normal 96.9 LAB MCH 26.0-34.0 pg MCH Normal 33.0 LAB MCHC 32.0-36.0 % MCHC Normal 34.0 LAB RDW 11.5-14.5 % RDW Normal 13.9 LAB PLT 140-440 10*3/uL Platelet Normal 146 LAB MPV 7.4-10.4 fL MPV Normal 10.1 Performed By: #### BMP3, MG3, PHOS3, VANCT, HEMLEONILA, MDIFF #### [facility] [address] [address] MANUAL DIFF Collected: 09/02/2018 Status: F Source: [facility] 1:39 AM SYSTEM REPOSITORY TYPE CODE TESTS RESULT OUT OF RANGE REFERENCE UNITS LAB NEUTR 40-80 % Low Seg Neutrophils 18 LAB BANDS 0-3 % High Bands 50 LAB LYMPH 20-40 % Low Lymphocytes 14 LAB MONOC 2-10 % Normal Monocytes 10 LAB EO 1-6 % Normal Eosinophils 4 LAB BASO 0-2 % Normal Basophils 0 LAB META <1 % Metamyelocytes Abnormal 4 LAB ANCM 2.2-8.2 10*3/uL Normal Abs Neutrophile Cnt 3.9 LAB ALCM 1.1-4.5 10*3/uL Low Abs Lymph Cnt 0.8 LAB AMCM 0.2-1.1 10*3/uL Normal Abs Monocyte Cnt 0.6 LAB AECM 0.0-0.5 10*3/uL Normal Abs Eosin Cnt 0.2 Result Comment: CORRECTED RESULT...Previous above value was 0.0, verified on 09/02/18 at 07:11 by CML . LAB ABCM 0.0-0.2 10*3/uL Abs Baso Normal Cnt 0.0 LAB RBMOR NA RBC Morphology ABNORMAL LAB ANISO NA Anisocytosis Slight LAB MACRO NA Macrocytosis Slight LAB LIMIT NA Cells counted 100 Performed By: #### BMP3, MG3, PHOS3, VANCT, HEMDF, MDIFF #### [employer] [address] [place] [phone] ARTERIAL BLOOD GASES Collected: 09/01/2018 Status: F Source: [facility] 11:34 AM SYSTEM REPOSITORY TYPE CODE TESTS RESULT OUT OF RANGE REFERENCE UNITS LAB HGBG ScreenOnly g/dL Hemoglobin 10.0 LAB PHG 7.350-7.450 NA pH Normal 7.355 LAB PCO2 35.0-45.0 mm[Hg] Low pCO2 32.1 LAB PO2 80.0-100.0 mm[Hg] High pO2 114.0 LAB HCO3 21.0-25.0 mmol/L Low HCO3 17.5 LAB TCO2 23.0-27.0 mmol/L Low TCO2 18.5 LAB SBE -3.0-3.0 mmol/L Low Std Base Excess -7.1 LAB O2SAT 95.0-100.0 % O2 Normal Saturation 98.1 LAB FIO2 NA FIO2 No data Performed By: #### ABG #### [facility] [address] [place] [phone] CR CHEST 1 VIEW Observed: 09/01/2018 Status: F Source: [facility] 7:51 AM SYSTEM REPOSITORY Patient Name: JANET GUZMAN Diagnostic Radiology Exam Date/Time 09/01/2018 06:20:26 EDT Exam CR Chest 1 View Frontal Ordering Physician AUGUSTIN VILLATORO Accession Number [id number] CPT4 Codes 68616 () Reason For Exam ETT, CT placement Report PORTABLE CHEST: INDICATION: Respiratory failure COMPARISON: 08/31/2018 Obtained at 0555 hours. A single portable AP radiograph of the chest was obtained. The heart is normal in size. The mediastinal silhouette is normal. There is partial interval clearing of the right basal infiltrate and the infiltrate/atelectasis of the left lower lung field persists. A small right effusion is noted. There is a right-sided chest tube without evidence of pneumothorax. There is no pleural thickening. The osseous structures are unremarkable. The ET tube and NG tube are unchanged. A right subclavian central venous catheter is present with the tip overlying the superior vena cava. IMPRESSION: Bibasal infiltrates with partial interval clearing of the right-sided infiltrate. A small right effusion present. The right-sided chest tube is again noted without evidence of pneumothorax. Report Dictated on Final Dictated: 09/01/2018 7:51 am Dictating Physician: DO SANDERS ALFRED Signed Date and Time: 09/01/2018 7:55 am Signed by: DO SANDERS ALFRED Transcribed Date and Time: 09/01/2018 7:51 HEMOGRAM W/ AUTODIFF Collected: 09/01/2018 Status: F Source: [facility] 4:21 AM SYSTEM REPOSITORY TYPE CODE TESTS RESULT OUT OF RANGE REFERENCE UNITS LAB IWBC 3.6-10.7 10*3/uL WBC Normal 4.3 LAB RBC 4.40-5.90 10*6/uL Low RBC 3.11 LAB HGB 13.0-18.0 g/dL Low Hemoglobin 10.6 LAB HCT 40.0-52.0 % Low Hematocrit 30.9 LAB MCV 80.0-98.0 fL High MCV 99.1 LAB MCH 26.0-34.0 pg MCH Normal 33.9 LAB MCHC 32.0-36.0 % MCHC Normal 34.2 LAB RDW 11.5-14.5 % RDW Normal 14.1 LAB PLT 140-440 10*3/uL Low Platelet 128 LAB MPV 7.4-10.4 fL MPV Normal 9.8 Performed By: #### HEMDF, MG3, PHOS3, BMP3, MDIFF #### [facility] [address] [place] [address] MAGNESIUM Collected: 09/01/2018 Status: F Source: [facility] 4:21 AM SYSTEM REPOSITORY TYPE CODE TESTS RESULT OUT OF RANGE REFERENCE UNITS LAB MG3 1.6-2.3 mg/dL Normal Magnesium 1.8 Performed By: #### HEMDF, MG3, PHOS3, BMP3, MDIFF #### [facility] [address] [place] [address] PHOSPHORUS Collected: 09/01/2018 Status: F Source: [facility] 4:21 AM SYSTEM REPOSITORY TYPE CODE TESTS RESULT OUT OF RANGE REFERENCE UNITS LAB PHOS3 2.5-4.5 mg/dL Normal Phosphorus 3.2 Performed By: #### HEMDF, MG3, PHOS3, BMP3, MDIFF #### [facility] [address] [place] [address] BASIC METABOLIC PANEL Collected: 09/01/2018 Status: F Source: [facility] 4:21 AM SYSTEM REPOSITORY TYPE CODE TESTS RESULT OUT OF RANGE REFERENCE UNITS LAB NA3 137-145 mmol/L Sodium Normal 143 LAB K3 3.5-5.1 mmol/L Low Potassium 3.3 LAB CL3 98-107 mmol/L High Chloride 120 LAB CO23 22-30 mmol/L Low Carbon Dioxide 17 LAB ANIN3 NA Anion Gap 6 LAB GLUC3 70-100 mg/dL High Glucose 181 LAB BUN3 7-20 mg/dL Urea Normal Nitrogen 12 LAB CRET3 0.52-1.25 mg/dL Normal Creatinine 1.05 LAB GF3BR >60 mL/min eGFR > 60.0 LAB GF3WR >60 mL/min eGFR OTHER > 60.0 Result Comment: Source- MDRD equation with creatinine calibration to IDMS(NKDEP) eGFR not recommended for drug dose adjustment LAB CA3 8.4-10.4 mg/dL Low Calcium 7.6 Performed By: #### HEMDF, MG3, PHOS3, BMP3, MDIFF #### [facility] [address] [place] [address] MANUAL DIFF Collected: 09/01/2018 Status: F Source: [facility] 4:21 AM SYSTEM REPOSITORY TYPE CODE TESTS RESULT OUT OF RANGE REFERENCE UNITS LAB NEUTR 40-80 % Low Seg Neutrophils 22 LAB BANDS 0-3 % High Bands 51 LAB LYMPH 20-40 % Low Lymphocytes 7 LAB MONOC 2-10 % Low Monocytes 1 LAB EO 1-6 % Eosinophils Normal 1 LAB BASO 0-2 % Basophils Normal 0 LAB META <1 % Metamyelocytes Abnormal 10 LAB MYELO <1 % Myelocytes Abnormal 2 LAB UNCLS <1 % Unclassifieds Abnormal 6 LAB ANCM 2.2-8.2 10*3/uL Abs Neutrophile Normal Cnt 3.1 LAB ALCM 1.1-4.5 10*3/uL Low Abs Lymph Cnt 0.3 LAB AMCM 0.2-1.1 10*3/uL Low Abs Monocyte Cnt 0.0 LAB AECM 0.0-0.5 10*3/uL Abs Eosin Cnt Normal 0.0 LAB ABCM 0.0-0.2 10*3/uL Abs Baso Cnt Normal 0.0 LAB RBMOR NA RBC Morphology ABNORMAL LAB POIK NA Poikilocytosis Slight LAB POLYC NA Polychromasia Slight LAB OVAL NA Ovalocytes Slight LAB TXVAC NA Toxic Vacuoles Slight LAB DOHLE NA Dohle Bodies Slight LAB LIMIT NA Cells counted 100 Performed By: #### HEMDF, MG3, PHOS3, BMP3, MDIFF #### [employer] [facility] [address] [place] [phone] ARTERIAL BLOOD GASES Collected: 09/01/2018 Status: F Source: [facility] 4:21 AM SYSTEM REPOSITORY TYPE CODE TESTS RESULT OUT OF RANGE REFERENCE UNITS LAB HGBG ScreenOnly g/dL Hemoglobin 10.6 LAB PHG 7.350-7.450 NA Low pH 7.295 LAB PCO2 35.0-45.0 mm[Hg] pCO2 Normal 35.6 LAB PO2 80.0-100.0 mm[Hg] High pO2 178.2 LAB HCO3 21.0-25.0 mmol/L Low HCO3 16.9 LAB TCO2 23.0-27.0 mmol/L Low TCO2 18.0 LAB SBE -3.0-3.0 mmol/L Low Std Base Excess -8.7 LAB O2SAT 95.0-100.0 % O2 Normal Saturation 99.0 LAB FIO2 NA FIO2 No data Performed By: #### ABG #### [facility] [employer] [facility] [address] [place] [phone] CR HAND COMPLETE 3+ Observed: 08/31/2018 Status: F Source: [facility] LEFT 4:29 PM SYSTEM REPOSITORY Patient Name: JANET GUZMAN Diagnostic Radiology Exam Date/Time 08/31/2018 11:36:03 EDT Exam CR Hand Complete 3+ Views Left Ordering Physician MD DANIELLA, ALBA Accession Number [id number] CPT4 Codes 43327 () Reason For Exam s/p trauma, finger deformity Report LEFT HAND History: Hand pain, injury to the third digit, swelling IMPRESSION: Three views of the left hand show dislocation of the PIP joint of the third digit. There is suggestion of focal fractures involving the tuft and the base of the fourth distal phalanx. There is diffuse soft tissue swelling. Report Dictated on Final Dictated: 08/31/2018 4:29 pm Dictating Physician: MD VALLEJO AHMAD Signed Date and Time: 08/31/2018 4:38 pm Signed by: MD VALLEJO AHMAD Transcribed Date and Time: 08/31/2018 4:29 CR HAND COMPLETE 3+ Observed: 08/31/2018 Status: F Source: [facility] LEFT 4:28 PM SYSTEM REPOSITORY Patient Name: JANET GUZMAN Diagnostic Radiology Exam Date/Time 08/31/2018 14:06:53 EDT Exam CR Hand Complete 3+ Views Left Ordering Physician REG ZEPEDA Accession Number [id number] CPT4 Codes 10537 () Reason For Exam post-reduction Report LEFT HAND History: Hand pain, postreduction views of the third digit Findings: Three views show reduction of previously dislocated PIP joint of the third digit compared to the exam done earlier today. There is now probably avulsion fracture of the distal aspect of the third proximal phalanx seen on the lateral view. There is suggestion of focal fracture of the tuft and base of the fourth distal phalanx. Correlate clinically. There is no joint dislocation at this time. There is diffuse soft tissue swelling. Report Dictated on Final Dictated: 08/31/2018 4:27 pm Dictating Physician: MD VALLEJO AHMAD Signed Date and Time: 08/31/2018 4:42 pm Signed by: MD VALLEJO AHMAD Transcribed Date and Time: 08/31/2018 4:28 CR CHEST PORTABLE Observed: 08/31/2018 Status: F Source: [facility] 4:23 PM SYSTEM REPOSITORY Patient Name: JANET GUZMAN Diagnostic Radiology Exam Date/Time 08/31/2018 15:22:36 EDT Exam CR Chest Portable Ordering Physician MD DANIELLA [facility] Accession Number [id number] CPT4 Codes 50899 () Reason For Exam s/p bronchoscopy w/ lavage Report CHEST (Frontal View) History: Respiratory abnormality , status post bronchoscopy Comparison: 08/31/2018, 8:32 AM Findings: Frontal chest view shows bilateral basilar infiltrate and atelectasis that have increased compared to last exam. Small nodular density or infiltrate is now projected at the right midlung. There is small right pleural effusion. Support catheter and tubes are similar to last exam. There is right subcutaneous emphysema that appear increased. Prior right clavicular and right ribs fractures are noted. There is no mediastinal widening, pneumothorax, or other significant interval change. Report Dictated on Final Dictated: 08/31/2018 4:23 pm Dictating Physician: MD VALLEJO AHMAD Signed Date and Time: 08/31/2018 4:27 pm Signed by: MD VALLEJO AHMAD Transcribed Date and Time: 08/31/2018 4:23 Observed: 08/31/2018 Status: F Source: [facility] CULT./ST. RESPIRATORY 3:35 PM SYSTEM REPOSITORY Order Comment: Specimen Source Comment:BAL Quantitative Count CULT./ST. RESPIRATORY --> Status: F Many normal respiratory devon. STAIN GRAM --> Status: F No polymorphonuclear cells/lpf. No epithelial cells/lpf. Few gram positive cocci in pairs. Many gram negative bacilli. No epithelial cells/lpf. Few gram positive cocci in pairs. Many gram negative bacilli. Performed By: #### CS/RE #### [facility] [employer] [address] Observed: 08/31/2018 Status: F [facility] SYSTEM REPOSITORY Order Comment: Specimen Source Comment:Blood CULTURE BLOOD --> Status: F No growth at 5 days. Performed By: #### C/BLD #### [address] Observed: 08/31/2018 Status: F [facility] (TWO) 12:50 PM SYSTEM REPOSITORY Order Comment: Specimen Source Comment:Blood CULTURE BLOOD (Two) --> Status: F No growth at 5 days. Performed By: #### C/BLT #### [address] URINALYSIS,MACRO Collected: 08/31/2018 Status: F Source: [facility] [employer] 12:43 PM SYSTEM REPOSITORY TYPE CODE TESTS RESULT OUT OF REFERENCE UNITS RANGE LAB APPUR Clear NA Appearance clear LAB COLUR Lt. Yellow NA Color green LAB USG 1.005-1.030 NA Specific Normal [place],Urine 1.010 LAB UPH 5.0-8.0 NA pH,Urine Normal 7.0 LAB ULUK Negative NA Leukocytes NEG LAB UNIT Negative NA Nitrites POS LAB UPRO Negative mg/dL Total Protein,Urine 75 LAB UGLU Negative mg/dL Glucose,Urine NORM LAB UKET Negative mg/dL Ketone,Urine NEG LAB UURO 0-1 mg/dL Urobilinogen 8 LAB UBIL Negative NA Bilirubin,Ur 1 LAB UBLD Negative {RBC}/uL Occult Blood,Ur 10 Performed By: #### UAMAC, UAMIC #### [address] URINALYSIS,MICROSCOPIC Collected: Status: F Source: [facility] 08/31/2018 12:43 PM [facility]ALTH [facility] REPOSITORY TYPE CODE TESTS RESULT OUT OF RANGE REFERENCE UNITS LAB WBCU 0-5 /[HPF] WBC,Urine 0 - 2 Result Comment: Interpret chemistries with caution; color of urine may interfere with results. LAB RBCU 0-2 /[HPF] RBC,Urine 0 - 2 LAB EPIU 3-5 /[HPF] Epithelial Cells 0 - 2 LAB JOSEPHINE Negative NA Bacteria Few (1-5) Performed By: #### UAMAC, UAMIC #### [facility] [employer] [address] [address] Observed: 08/31/2018 Status: F Source: [facility] CULT./ST. RESPIRATORY 11:53 AM SYSTEM REPOSITORY Order Comment: Specimen Source Comment:Tracheal Aspirate CULT./ST. RESPIRATORY --> Status: F Many normal respiratory devon. STAIN GRAM --> Status: F Many polymorphonuclear cells/lpf. Many gram negative coccobacilli. Many gram positive cocci in pairs and chains. Many gram positive bacilli. Many gram negative coccobacilli. Many gram positive cocci in pairs and chains. Many gram positive bacilli. 2 Organism Haemophilus influenzae Many Ampicillin/Penicillin Susceptible (Beta lactamase negative) Performed By: #### CS/RE #### [facility] [address] [phone] CR CHEST 1 VIEW Observed: 08/31/2018 Status: F Source: [facility] 9:39 AM SYSTEM REPOSITORY Patient Name: JANET GUZMAN Diagnostic Radiology Exam Date/Time 08/31/2018 08:39:01 EDT Exam CR Chest 1 View Frontal Ordering Physician AUGUSTIN VILLATORO Accession Number [id number] CPT4 Codes 99134 () Reason For Exam ETT, CT placement Report CHEST (Frontal View) History: Respiratory abnormality Comparison: 08/30/2018 Findings: Frontal chest view shows right basilar atelectasis and infiltrate, increased since last exam. There is a smaller linear left basilar atelectasis. Both lungs show interstitial prominence without congestion. The heart is normal in size. There is probably small right pleural effusion. There is redemonstration of right ribs and left clavicular fractures. Tracheal and enteric tubes, right central catheter, right chest tube with subcutaneous emphysema are similar to last exam. There is no mediastinal widening or other significant interval change. Report Dictated on Final Dictated: 08/31/2018 9:39 am Dictating Physician: MD VALLEJO AHMAD Signed Date and Time: 08/31/2018 9:41 am Signed by: MD VALLEJO AHMAD Transcribed Date and Time: 08/31/2018 9:39 CT HEAD OR BRAIN W/O Observed: 08/31/2018 Status: F Source: [facility] CONTRAST 6:35 AM SYSTEM REPOSITORY Patient Name: JANET GUZMAN CT Exam Date/Time 08/31/2018 05:51:[address] Head or Brain w/o Contrast Ordering Physician MD LOGAN ANDREW MICHAEL Accession Number [id number] CPT4 Codes 62901 () Reason For Exam HEAD TRAUMA, CLOSED, MILD, ABN NEURO EXAM AND/OR RISK FACTORS Report CT scan head: 08/31/2018. CLINICAL INFORMATION: Closed head trauma. FINDINGS: CT scans of the head were performed at 3 mm slice thickness. Comparison was made to the prior day's study. The ventricular system and cortical sulci are within normal limits. A pressure monitor is present in the right frontal lobe. There is minimal surrounding hardening artifact. There is a small amount of subarachnoid hemorrhage in the high left parietal region. Since unchanged. There are bilateral temporal hematoma is right slightly greater than left with the thin rim of surrounding edema unchanged from the prior study there is a small left subdural hematoma temporally. No new areas of hemorrhage are identified. No mass effect is seen. Scans reviewed at bony window settings reveal mucosal thickening in the ethmoid air cells bilaterally and left frontal sinus. There is mucosal thickening in the sphenoid sinus and right maxillary sinus. There is opacification of the right mastoid sinuses similar to prior study. The roof of the left orbit fracture is again identified, as is the right temporal bone fracture. IMPRESSION: No significant interval change from prior study. No new abnormalities identified. Report Dictated on Workstation: [id number] Final Dictated: 08/31/2018 6:35 am Dictating Physician: MD MÉNDEZ RISA Signed Date and Time: 08/31/2018 7:04 am Signed by: MD MÉNDEZ RISA Transcribed Date and Time: 08/31/2018 6:35 ARTERIAL BLOOD GASES Collected: 08/31/2018 Status: F Source: [facility] 1:08 AM SYSTEM REPOSITORY TYPE CODE TESTS RESULT OUT OF RANGE REFERENCE UNITS LAB HGBG ScreenOnly g/dL Hemoglobin 10.7 LAB PHG 7.350-7.450 NA pH Normal 7.400 LAB PCO2 35.0-45.0 mm[Hg] Low pCO2 31.8 LAB PO2 80.0-100.0 mm[Hg] High pO2 131.1 LAB HCO3 21.0-25.0 mmol/L Low HCO3 19.3 LAB TCO2 23.0-27.0 mmol/L Low TCO2 20.2 LAB SBE -3.0-3.0 mmol/L Low Std Base Excess -4.7 LAB O2SAT 95.0-100.0 % O2 Normal Saturation 98.0 LAB FIO2 NA FIO2 No data Performed By: #### ABG #### [facility] [employer] [address] [place] [phone] HEMOGRAM W/ AUTODIFF Collected: 08/31/2018 Status: F Source: [facility] 1:08 AM SYSTEM REPOSITORY TYPE CODE TESTS RESULT OUT OF REFERENCE UNITS RANGE LAB IWBC 3.6-10.7 10*3/uL WBC Normal 5.5 LAB RBC 4.40-5.90 10*6/uL Low RBC 3.13 LAB HGB 13.0-18.0 g/dL Low Hemoglobin 10.5 LAB HCT 40.0-52.0 % Low Hematocrit 31.1 LAB MCV 80.0-98.0 fL MCV High 99.3 LAB MCH 26.0-34.0 pg MCH Normal 33.6 LAB MCHC 32.0-36.0 % MCHC Normal 33.9 LAB RDW 11.5-14.5 % RDW Normal 13.9 LAB PLT 140-440 10*3/uL Low Platelet 137 LAB MPV 7.4-10.4 fL MPV Normal 10.0 LAB GRAN% 40.0-80.0 % Granulocytes Normal 60.4 LAB LYMP% 20.0-40.0 % Lymphocytes Normal 22.1 LAB MONO% 2.0-10.0 % Monocytes High 10.7 LAB EOS% 1.0-6.0 % Eosinophils Normal 5.4 LAB BAS% 0.0-2.0 % Basophils Normal 1.4 LAB ANC 1.8-7.0 10*3/uL Abs Normal Neutrophile Cnt 3.3 LAB ALC 1.0-4.3 10*3/uL Abs Lymph Cnt Normal 1.2 LAB AMC 0.0-0.8 10*3/uL Abs Monocyte Normal Cnt 0.6 LAB AEC 0.0-0.5 10*3/uL Abs Eosin Cnt Normal 0.3 LAB ABC 0.0-0.2 10*3/uL Abs Baso Cnt Normal 0.1 Performed By: #### HEMDF, BMP3, MG3, PHOS3 #### [employer] [address] [place] [phone] BASIC METABOLIC PANEL Collected: 08/31/2018 Status: F Source: [facility] 1:08 AM SYSTEM REPOSITORY TYPE CODE TESTS RESULT OUT OF RANGE REFERENCE UNITS LAB NA3 137-145 mmol/L Sodium Normal 143 LAB K3 3.5-5.1 mmol/L Low Potassium 3.3 LAB CL3 98-107 mmol/L High Chloride 123 LAB CO23 22-30 mmol/L Low Carbon Dioxide 19 LAB ANIN3 NA Anion Gap 1 LAB GLUC3 70-100 mg/dL High Glucose 128 LAB BUN3 7-20 mg/dL Urea Normal Nitrogen 12 LAB CRET3 0.52-1.25 mg/dL Normal Creatinine 0.80 LAB GF3BR >60 mL/min eGFR > 60.0 LAB GF3WR >60 mL/min eGFR OTHER > 60.0 Result Comment: Source- MDRD equation with creatinine calibration to IDMS(NKDEP) eGFR not recommended for drug dose adjustment LAB CA3 8.4-10.4 mg/dL Low Calcium 7.5 Performed By: #### HEMDF, BMP3, MG3, PHOS3 #### [facility] [employer] [address] [place] [phone] MAGNESIUM Collected: 08/31/2018 Status: F Source: [facility] 1:08 AM SYSTEM REPOSITORY TYPE CODE TESTS RESULT OUT OF RANGE REFERENCE UNITS LAB MG3 1.6-2.3 mg/dL Normal Magnesium 2.1 Performed By: #### HEMDF, BMP3, MG3, PHOS3 #### [facility] [employer] [address] [place] [phone] PHOSPHORUS Collected: 08/31/2018 Status: F Source: [facility] 1:08 AM SYSTEM REPOSITORY TYPE CODE TESTS RESULT OUT OF REFERENCE UNITS RANGE LAB PHOS3 2.5-4.5 mg/dL Low Phosphorus 1.8 Performed By: #### HEMDF, BMP3, MG3, PHOS3 #### [facility] [address] [place] [phone] ARTERIAL BLOOD GASES Collected: 08/30/2018 Status: F Source: [facility] 5:40 PM SYSTEM REPOSITORY TYPE CODE TESTS RESULT OUT OF RANGE REFERENCE UNITS LAB HGBG ScreenOnly g/dL Hemoglobin 10.5 LAB PHG 7.350-7.450 NA pH Normal 7.377 LAB PCO2 35.0-45.0 mm[Hg] Low pCO2 33.4 LAB PO2 80.0-100.0 mm[Hg] High pO2 194.4 LAB HCO3 21.0-25.0 mmol/L Low HCO3 19.2 LAB TCO2 23.0-27.0 mmol/L Low TCO2 20.2 LAB SBE -3.0-3.0 mmol/L Low Std Base Excess -5.2 LAB O2SAT 95.0-100.0 % O2 Normal Saturation 98.9 LAB FIO2 NA FIO2 No data Performed By: #### ABG #### [facility] [address] [place] [phone] SODIUM Collected: 08/30/2018 Status: F Source: [facility] 5:39 PM SYSTEM REPOSITORY TYPE CODE TESTS RESULT OUT OF RANGE REFERENCE UNITS LAB NA3 137-145 mmol/L Normal Sodium 143 Performed By: #### NA3 #### [facility] [address] [place] [phone] ARTERIAL BLOOD GASES Collected: 08/30/2018 Status: F Source: [facility] 1:18 PM SYSTEM REPOSITORY TYPE CODE TESTS RESULT OUT OF RANGE REFERENCE UNITS LAB HGBG ScreenOnly g/dL Hemoglobin 10.6 LAB PHG 7.350-7.450 NA pH Normal 7.368 LAB PCO2 35.0-45.0 mm[Hg] pCO2 Normal 37.0 LAB PO2 80.0-100.0 mm[Hg] High pO2 134.1 LAB HCO3 21.0-25.0 mmol/L Low HCO3 20.8 LAB TCO2 23.0-27.0 mmol/L Low TCO2 21.9 LAB SBE -3.0-3.0 mmol/L Low Std Base Excess -4.0 LAB O2SAT 95.0-100.0 % O2 Normal Saturation 97.8 LAB FIO2 NA FIO2 No data Performed By: #### ABG #### [facility] [address] [place] [address] SODIUM Collected: 08/30/2018 Status: F Source: [facility] 12:40 PM SYSTEM REPOSITORY TYPE CODE TESTS RESULT OUT OF RANGE REFERENCE UNITS LAB NA3 137-145 mmol/L Normal Sodium 145 Performed By: #### NA3 #### [facility] [address] [place] [address] CT HEAD OR BRAIN W/O Observed: 08/30/2018 Status: F Source: [facility] CONTRAST 9:46 AM SYSTEM REPOSITORY Patient Name: JANET GUZMAN CT Exam Date/Time 08/30/2018 09:24:[address] Head or Brain w/o Contrast Ordering Physician MD KASSANDRA, TRELL Lopez Accession Number [id number] CPT4 Codes 96496 () Reason For Exam HEAD TRAUMA, CLOSED, MOD-SEVERE Report CLINICAL INFORMATION: Intracranial hemorrhages following closed head trauma. Follow-up examination. CT HEAD WITHOUT INTRAVENOUS CONTRAST: Volume acquisition CT images are obtained from foramen magnum to vertex without intravenous contrast with axial, coronal and sagittal 2-D reconstructions. Comparison is made to the examination of the previous day. The ventricles and sulci are unremarkable in size and configuration. There are bilateral mid temporal lobe intraparenchymal hematomas, right slightly larger than left, both slightly increased in size from the prior examination. Rim of hypodensity surrounding both hemorrhages, increased on the right and new on the left consistent with related cytotoxic edema. There is a small subdural hematoma along the mid and anterior left temporal convexity, similar in size. There is a small hemorrhagic contusion of the left frontal lobe with cytotoxic edema with the hemorrhage similar in the edema increased. There is slight improvement of the bilateral posterior frontal and temporoparietal subarachnoid hemorrhages, left remaining slightly greater than right. There is no intraventricular hemorrhage. There is beam hardening artifact from a metallic density in the lateral aspect of the high right frontal lobe most likely related to intracranial pressure monitor. There are no new areas acute intracranial hemorrhage. Nondisplaced comminuted fractures of the right temporal and parietal calvarium and superior wall of the left orbit are redemonstrated without interval change. There is partial opacification of the right maxillary sinus with an air-fluid level similar to prior examination. IMPRESSION: 1. Multiple areas of acute intraparenchymal and subarachnoid hemorrhage and a small left temporal subdural hematoma with slight increase in the bilateral temporal lobe intraparenchymal hematomas and increased adjacent cytotoxic edema, increased cytotoxic edema associated with the left frontal intraparenchymal hematoma, stable left temporal subdural hematoma and slight decrease of the subarachnoid hemorrhages. 2. No areas of new intracranial hemorrhage. 3. Left orbit and right skull fractures as described. Report Dictated on Final Dictated: 08/30/2018 9:46 am Dictating Physician: MD REYNA HARLAN Signed Date and Time: 08/30/2018 10:02 am Signed by: MD REYNA HARLAN Transcribed Date and Time: 08/30/2018 9:46 CR CHEST 1 VIEW Observed: 08/30/2018 Status: F Source: [facility] 6:41 AM SYSTEM REPOSITORY Patient Name: JANET GUZMAN Diagnostic Radiology Exam Date/Time 08/30/2018 06:17:38 EDT Exam CR Chest 1 View Frontal Ordering Physician AUGUSTIN VILLATORO Accession Number [id number] CPT4 Codes 94629 () Reason For Exam ETT, CT placement Report Portable chest 08/30/2018: Clinical Information: Chest tube placement. Findings: A single AP portable view of the chest was obtained at 608 hours. Comparison was made to the prior study prior day. The various lines and tubes are unchanged. No pneumothorax is identified. No pulmonary vascular congestion or consolidation is seen. Report Dictated on Workstation: [id number] Final Dictated: 08/30/2018 6:41 am Dictating Physician: MD MÉNDEZ RISA Signed Date and Time: 08/30/2018 6:44 am Signed by: MD MÉNDEZ RISA Transcribed Date and Time: 08/30/2018 6:41 HEMOGRAM W/ AUTODIFF Collected: 08/30/2018 Status: F Source: [facility] 6:26 AM SYSTEM REPOSITORY TYPE CODE TESTS RESULT OUT OF REFERENCE UNITS RANGE LAB IWBC 3.6-10.7 10*3/uL WBC Normal 4.3 LAB RBC 4.40-5.90 10*6/uL Low RBC 3.22 LAB HGB 13.0-18.0 g/dL Low Hemoglobin 10.8 LAB HCT 40.0-52.0 % Low Hematocrit 32.0 LAB MCV 80.0-98.0 fL MCV High 99.4 LAB MCH 26.0-34.0 pg MCH Normal 33.5 LAB MCHC 32.0-36.0 % MCHC Normal 33.7 LAB RDW 11.5-14.5 % RDW Normal 14.2 LAB PLT 140-440 10*3/uL Low Platelet 130 LAB MPV 7.4-10.4 fL MPV Normal 9.8 LAB GRAN% 40.0-80.0 % Granulocytes Normal 57.7 LAB LYMP% 20.0-40.0 % Lymphocytes Normal 26.4 LAB MONO% 2.0-10.0 % Monocytes High 12.2 LAB EOS% 1.0-6.0 % Eosinophils Normal 2.8 LAB BAS% 0.0-2.0 % Basophils Normal 0.9 LAB ANC 1.8-7.0 10*3/uL Abs Normal Neutrophile Cnt 2.5 LAB ALC 1.0-4.3 10*3/uL Abs Lymph Cnt Normal 1.1 LAB AMC 0.0-0.8 10*3/uL Abs Monocyte Normal Cnt 0.5 LAB AEC 0.0-0.5 10*3/uL Abs Eosin Cnt Normal 0.1 LAB ABC 0.0-0.2 10*3/uL Abs Baso Cnt Normal 0.0 Performed By: #### BMP3, MG3, PHOS3, HEMDF #### [facility] [address] [place] [phone] ARTERIAL BLOOD GASES Collected: 08/30/2018 Status: F Source: [facility] 6:26 AM SYSTEM REPOSITORY TYPE CODE TESTS RESULT OUT OF RANGE REFERENCE UNITS LAB HGBG ScreenOnly g/dL Hemoglobin 11.2 LAB PHG 7.350-7.450 NA pH Normal 7.361 LAB PCO2 35.0-45.0 mm[Hg] pCO2 Normal 38.3 LAB PO2 80.0-100.0 mm[Hg] pO2 Normal 98.9 LAB HCO3 21.0-25.0 mmol/L HCO3 Normal 21.2 LAB TCO2 23.0-27.0 mmol/L Low TCO2 22.4 LAB SBE -3.0-3.0 mmol/L Low Std Base Excess -3.8 LAB O2SAT 95.0-100.0 % O2 Normal Saturation 96.9 LAB FIO2 NA FIO2 No data Performed By: #### ABG #### [facility] [address] [place] [phone] SODIUM Collected: 08/30/2018 Status: F Source: [facility] 6:26 AM SYSTEM REPOSITORY TYPE CODE TESTS RESULT OUT OF RANGE REFERENCE UNITS LAB NA3 137-145 mmol/L Normal Sodium 144 Performed By: #### NA3 #### [facility] [address] [place] [address] BASIC METABOLIC PANEL Collected: 08/30/2018 Status: F Source: [facility] 12:43 AM SYSTEM REPOSITORY TYPE CODE TESTS RESULT OUT OF RANGE REFERENCE UNITS LAB NA3 137-145 mmol/L Sodium Normal 145 LAB K3 3.5-5.1 mmol/L Normal Potassium 3.6 LAB CL3 98-107 mmol/L High Chloride 122 LAB CO23 22-30 mmol/L Carbon Normal Dioxide 22 LAB ANIN3 NA Anion Gap 2 LAB GLUC3 70-100 mg/dL Glucose Normal 100 LAB BUN3 7-20 mg/dL Urea Normal Nitrogen 16 LAB CRET3 0.52-1.25 mg/dL Normal Creatinine 0.96 LAB GF3BR >60 mL/min eGFR > 60.0 LAB GF3WR >60 mL/min eGFR OTHER > 60.0 Result Comment: Source- MDRD equation with creatinine calibration to IDMS(NKDEP) eGFR not recommended for drug dose adjustment LAB CA3 8.4-10.4 mg/dL Low Calcium 7.8 Performed By: #### BMP3, MG3, PHOS3, HEMDF #### [facility] [address] [place] [phone] MAGNESIUM Collected: 08/30/2018 Status: F Source: [facility] 12:43 AM SYSTEM REPOSITORY TYPE CODE TESTS RESULT OUT OF REFERENCE UNITS RANGE LAB MG3 1.6-2.3 mg/dL High Magnesium 2.4 Performed By: #### BMP3, MG3, PHOS3, HEMDF #### [facility] [address] [place] [address] PHOSPHORUS Collected: 08/30/2018 Status: F Source: [facility] 12:43 AM SYSTEM REPOSITORY TYPE CODE TESTS RESULT OUT OF REFERENCE UNITS RANGE LAB PHOS3 2.5-4.5 mg/dL Low Phosphorus 2.2 Performed By: #### BMP3, MG3, PHOS3, HEMDF #### [facility] [address] [place] [address] ARTERIAL BLOOD GASES Collected: 08/29/2018 Status: F Source: [facility] 7:22 PM SYSTEM REPOSITORY TYPE CODE TESTS RESULT OUT OF RANGE REFERENCE UNITS LAB HGBG ScreenOnly g/dL Hemoglobin 11.0 LAB PHG 7.350-7.450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
== END ==
PROVIDERS: Family Provider Internal Medicine; PCP Internal Medicine; Referring Provider Internal Medicine; Visit Provider Internal Medicine
DX: I82.412 Acute embolism and thrombosis of left femoral vein (principal)
CPT/HCPCS: 93971

== ENCOUNTER → 2019-01-14 13:21 | Outpatient (CLI) | payer BC, SELFPAY ==
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
[2019-01-14 13:41] LABS: CREATININE FINGERSTICK 1.1 mg/dL (0.70-1.30)
== END ==
PROVIDERS: Family Provider Internal Medicine; PCP Internal Medicine; Referring Provider Psychiatry & Neurology Neurology; Visit Provider Psychiatry & Neurology Neurology
DX: R42 Dizziness and giddiness (principal); Z86.73 Personal history of transient ischemic attack (TIA), and cerebral infarction without residual deficits
CPT/HCPCS: 70496; 70498; Q9967

== ENCOUNTER → 2019-03-26 | Outpatient (CLI) | payer BC, SELFPAY ==
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
== END | disposition home or self-care (01) ==
PROVIDERS: Family Provider Internal Medicine; PCP Internal Medicine; Referring Provider Internal Medicine; Visit Provider Internal Medicine
DX: R26.89 Other abnormalities of gait and mobility (principal)
CPT/HCPCS: 70551

== ENCOUNTER 2019-03-28 09:32 | Outpatient (RCR) | payer BC, SELFPAY ==
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
== END 2019-03-28 19:00 | disposition home or self-care (01) ==
LOC: OT 09:32
PROVIDERS: Family Provider Internal Medicine; PCP Internal Medicine; Visit Provider Internal Medicine
DX: S06.9X0D Unspecified intracranial injury without loss of consciousness, subsequent encounter (principal)
CPT/HCPCS: 97750

== ENCOUNTER 2019-04-11 09:30 | Outpatient (RCR) | payer BC, SELFPAY ==
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
--- NOTE | 2019-02-25 14:58 | HP.SP.DC ---
ST Discharge Summary - Discharged: Discharge: Gene Carlson is discharged from outpatient speech-language therapy effective 02/25/19. 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 However, no appointments were ever scheduled and the patient eventually elected not to pursue further outpatient therapy. Please reconsult as necessary.
--- NOTE | 2019-03-14 10:13 | HP.PTCOM ---
PT Communication Note 03/14/[address] SEGUN CLAYTON , Thank you for the referral of Mr. Carlson to [facility] for balacne testing and therapy. I have enclosed a copy of his results for your review. In summation, he scored low on the vestibular portion of the Sensory Organization test. He scored slow especially on L LE Motor control Test. he score poorly on forward weight shifting on the Limits of Stability Test. Based on these results, I polan to see him 2x/week for 4 weeks to work toward exercises that will improve these deficits. If there are questions regarding his physical therapy, please feel free to call me. Thank you. Sincerely, Bimal Farooq, DPT, OCS, CSCS Contact Information
--- NOTE | 2019-03-14 10:18 | HP.PTCOM_ITS ---
PT Communication Note 03/14/[address] SEGUN CLAYTON , Thank you for the referral of Mr. Carlson to [employer] for balacne testing and therapy. I have enclosed a copy of his results for your review. In summation, he scored low on the vestibular portion of the Sensory Organization test. He scored slow especially on L LE Motor control Test. he score poorly on forward weight shifting on the Limits of Stability Test. Based on these results, I polan to see him 2x/week for 4 weeks to work toward exercises that will improve these deficits. If there are questions regarding his physical therapy, please feel free to call me. Thank you. Sincerely, Bimal Farooq, DPT, OCS, CSCS Contact Information
--- NOTE | 2019-04-11 10:28 | HP.PTDCSUM ---
HP - PT D/C Summary It has been my pleasure to treat JANET GUZMAN under orders from SEUGN CLAYTON, for the diagnosis of SAH, vertigo for a total of 9 visit(s). Discharge Date: 04/11/19 Please see the following information for a summary of their discharge status. - Subjective Subjective: Is up and down. Last couple days has felt off balance adn sow thinking. Today feels pretty good. No falls. Doing exercises on machine at home that he is doing well on. Still doesn't ride mow because he likes nice straight lines. Not driving but feels like he could. Not riding motorcycle. Not doing mulch or gardening or rototilling as the kids are doing it. Irregular ground still feels problematic. Does walk out in the trinh with the dogs but doesn't feel right. No dizzyness or lightheaded but doesn't feel steady. Feels like body going to the left.180 degree turns at home are daily but doesn't feel any easier. 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 Dr. Mckeon will have him see brain trauma specialist in [place] 05/03. - Pain R shoulder Pain Intensity (Out of 10): 0 - Overall Improvement % Improvement: 35 - Objective Objective/Function: FGA improved 4 points. Walking transferring adn steps are slow but safe on firm flat surface. Pt doing better with baalcne but not feeling consistently balanced or active. No dizzyness which is much better. - Goals Goal 1:: turn head R 180 and down to knee and recover without dysequilibrium Goal Progress: Goal Met Goal 2:: FGA to diminish fallr isk. Goal Progress: Progressing Goal 3:: Neurocom balance assessment and treaatment recommendation Goal Progress: Goal Met Goal 4:: pt feel 75% improved with dizzyness and balance Goal Progress: Not Progressing - Plan Plan: Pt to see neurossurgeon for other appropriate steps as he tests better balance but not feeling consistently better and still hesitant to try all functional activites due to safety. Recommended cane outside on uneven surfaces. Pt wishes to see neurosurgeon before any other options considered. - D/C Information Discharge Comments: Pt scoring better with balance despite still slow motor confidence. Not feeling better and wishes to see neurosurgeon in April as next step vs continued therapy. This is an appropriate option at this point. If there are questions or concerns regarding this patient's physical therapy, please feel free to call me at [phone]. Thank you for the referral of this patient. Sincerely, Bimal Farooq, DPT, OCS, CSCS
== END 2019-04-11 19:00 | disposition home or self-care (01) ==
LOC: PT 09:30
PROVIDERS: Family Provider Internal Medicine; PCP Internal Medicine
DX: I60.9 Nontraumatic subarachnoid hemorrhage, unspecified (principal)
CPT/HCPCS: 92523; 97110; 97162; 97530; 97750

== ENCOUNTER → 2019-04-26 | Outpatient (CLI) | payer BC, SELFPAY ==
--- NOTE | 2019-04-26 15:11 | EEG ---
- Electroencephalogram Date of service 04/26/2019 History EEG is being done in this 64 yr M to rule out seizures EEG Description: This is an 18 channel EEG with 10-20 lead placement system. Bipolar montages, and Referential montages were reviewed. Photic stimulation and Hyperventilation were performed. The posterior dominant rhythm is 10 HZ synchronous, symmetric, reacting to eye opening and closing. Photo stimulation elicited normal driving response but no abnormal photoparoxysmal response, Hyperventilation did not elicit any abnormal photoparoxysmal response. Sleep was identified. There is no abnormal background slowing noted. EKG artefact noted during the record. There was no epileptiform discharges or electrographic seizures noted during this recording. EEG Interpretation This is a normal awake and asleep EEG. There is no epileptiform discharges or electrographic seizures noted during the record.
== END | disposition home or self-care (01) ==
LOC: PSN 07:14
PROVIDERS: Family Provider Internal Medicine; PCP Internal Medicine; Referring Provider Internal Medicine; Visit Provider Internal Medicine
DX: S06.9X9S Unspecified intracranial injury with loss of consciousness of unspecified duration, sequela (principal)
CPT/HCPCS: 95819